=== PATIENT | male | born 1945 | race Caucasian/White ===

== ENCOUNTER 2020-10-01 07:16 | Outpatient (CLI) | payer MEDICARE, SELFPAY | END 2020-10-01 07:17 | disposition home or self-care (01) | PROVIDERS: PCP Internal Medicine; Visit Provider Nurse Practitioner Family | DX: R19.7 Diarrhea, unspecified (principal) | CPT/HCPCS: 87045; 87046; 87177; 87209; 87427 ==

== ENCOUNTER → 2020-10-17 01:12 | Outpatient (CLI) | payer MEDICARE, SELFPAY ==
[2020-10-17 19:13] LABS: SARS-CoV-2 RNA PCR Negative
== END ==
PROVIDERS: PCP Internal Medicine; Visit Provider Internal Medicine Gastroenterology
DX: Z01.812 Encounter for preprocedural laboratory examination (principal); Z20.822 Contact with and (suspected) exposure to COVID-19
CPT/HCPCS: C9803; U0003; U0005

== ENCOUNTER 2020-10-21 02:58 | Day surgery (SDC) | payer MEDICARE, SELFPAY ==
[2020-10-07 14:30] VITALS: BMI 22.4
[2020-10-21 06:47] VITALS: BP 140/80; PULSE 70; RESP 15; TEMP 36.1; O2SAT 96; BMI 22.4
[2020-10-21] MEDS: LACTATED RINGERS 1,000 ML 150 ML IV CONT (07:02)
--- NOTE | 2020-10-21 07:23 | PM.HPGS ---
History of Present Illness History of Present Illness Consent: Risks, benefits, and alternatives have been discussed and questions answered. Patient agrees to proceed with procedure. Chief complaint: diarrhea, hx of colon polyps Narrative: Femi Thomson is a 75 year old male here for colon cancer screening. He had several polyps removed about 5 years ago and has a family history of colon cancer Review of Systems Review of Systems: All systems reviewed & are unremarkable except as noted in HPI and below PMFSH Past Medical History Medical History HLD (hyperlipidemia) HTN (hypertension) Social History Social History Smoking packs per day: 1 Smoking cigarettes per day: 20.0 Years smoked: 45 Smoking pack-years: 45.00 Smoking status: Former smoker Tobacco type: cigarettes Alcohol intake: never Substance use: never Substance use type: does not use Living arrangements: with family Spiritual care concerns: No Meds Home Medications and Allergies Home Medications Medication Instructions Recorded Confirmed Type Bifidobacterium infantis 4 mg 4 mg PO DAILY 09/22/20 10/21/20 History capsule finasteride 5 mg tablet 5 mg PO DAILY 09/22/20 10/21/20 History nystatin 100,000 unit/gram topical 1 applic TOPICAL DAILY 09/22/20 10/21/20 History cream famotidine 20 mg tablet 20 mg PO QHS #30 tablet 09/30/20 10/21/20 Rx Allergies Allergy/AdvReac Type Severity Reaction Status Date / Time ciprofloxacin Allergy Mild Unknown Verified 10/21/20 06:46 doxycycline Allergy Mild Unknown Verified 10/21/20 06:46 metronidazole Allergy Mild Unknown Verified 10/21/20 06:46 prednisone Allergy Mild Unknown Verified 10/21/20 06:46 Vital Signs Vital Signs - 24 hr 10/21/20 06:47 Temperature 36.1 C L Pulse Rate 70 Respiratory Rate 15 Blood Pressure 140/80 Pulse Oximetry 96 Exam Resp: Auscultation: clear to auscultation bilaterally Cardio: Rate: regular rate Rhythm: regular rhythm GI: GI Palp: Yes Soft to palpation and No Tenderness to palpation present (GI) Assessment and Plan Assessment and plan (1) Colon cancer screening: Code(s): Z12.11 - Encounter for screening for malignant neoplasm of colon Status: Acute Assessment and Plan: Colonoscopy with possible biopsy or polypectomy or cautery or injection of substances.
--- NOTE | 2020-10-21 07:34 | WPDANESEPPF ---
Anes - Initial Pre Proc Eval Procedure: Operation Date: 10/21/20 08:00 Proposed Procedures p Colonoscopy - Jordon Licea MD Date/Time: 10/21/20 07:34 Surgeon: Jordon Licea MD Pre Op Diagnosis: diarrhea, hx of colon polyps Patient Data Age: 75 Gender: M Height: 6 ft Weight: 75 kg Last Vital Signs Temp 97 F L 10/21/20 06:47 Pulse 70 10/21/20 06:47 Resp 15 10/21/20 06:47 BP 140/80 10/21/20 06:47 Pulse Ox 96 10/21/20 06:47 Allergies Allergy/AdvReac Type Severity Reaction Status Date / Time ciprofloxacin Allergy Mild Unknown Verified 10/21/20 06:46 doxycycline Allergy Mild Unknown Verified 10/21/20 06:46 metronidazole Allergy Mild Unknown Verified 10/21/20 06:46 prednisone Allergy Mild Unknown Verified 10/21/20 06:46 Home Medications Medication Instructions Recorded Confirmed Type Bifidobacterium infantis 4 mg 4 mg PO DAILY 09/22/20 10/21/20 History capsule finasteride 5 mg tablet 5 mg PO DAILY 09/22/20 10/21/20 History nystatin 100,000 unit/gram topical 1 applic TOPICAL DAILY 09/22/20 10/21/20 History cream famotidine 20 mg tablet 20 mg PO QHS #30 tablet 09/30/20 10/21/20 Rx Patient hx anesthesia problems: none Family hx anesthesia problems: none PMFSH Past Medical History Medical History HLD (hyperlipidemia) HTN (hypertension) Social History Social History Smoking packs per day: 1 Smoking cigarettes per day: 20.0 Years smoked: 45 Smoking pack-years: 45.00 Smoking status: Former smoker Tobacco type: cigarettes Alcohol intake: never Substance use: never Substance use type: does not use Living arrangements: with family Spiritual care concerns: No Anes - Eval Final PreProcedure Day of Procedure 10/21/20 07:34 Patient weight: normal Heart: regular rate and rhythm Lungs: clear to auscultation Airway: Mallampati scale class III Neurological: alert and oriented Last oral intake: >/= 8 hours ASA classification: III Emergent: no Anesthetic plan: proceed Anesthesia type and monitoring: general GIVS and standard monitoring Informed Consent: The patient's anesthetic plan and its attendant risks and benefits were discussed with the patient/family/POA. Questions were solicited and answers provided to the satisfaction of the patient/family/POA.
[2020-10-21 08:23] VITALS: BP 96/58; PULSE 59; RESP 21; O2SAT 99
[2020-10-21 08:33] VITALS: BP 96/57; PULSE 61; RESP 19; O2SAT 100
[2020-10-21 08:42] VITALS: BP 128/81; PULSE 65; RESP 21; O2SAT 98
[2020-10-21 08:52] VITALS: BP 122/84; PULSE 63; RESP 22; O2SAT 98
== END 2020-10-21 09:04 | disposition home or self-care (01) ==
PROVIDERS: PCP Internal Medicine; Visit Provider Internal Medicine Gastroenterology
PROC: 0DJD8ZZ Inspection of Lower Intestinal Tract, Via Natural or Artificial Opening Endoscopic (ICD-10-PCS; CPT 45378; principal; 2020-10-21 08:00)
DX: Z12.11 Encounter for screening for malignant neoplasm of colon (principal); R19.7 Diarrhea, unspecified; Z86.010 Personal history of colon polyps; Z80.0 Family history of malignant neoplasm of digestive organs; I10 Essential (primary) hypertension; E78.5 Hyperlipidemia, unspecified; Z87.891 Personal history of nicotine dependence
CPT/HCPCS: G0105; J2704; J7120

== ENCOUNTER 2021-04-07 14:59 | Outpatient (CLI) | payer MEDICARE, SELFPAY ==
--- NOTE | ~2021-04-07 | XR_ITS ---
XR abdomen/kub 1V 04/07/2021 15:55 INDICATION: Hematuria. TECHNIQUE: KUB COMPARISON: Comparison to multiple prior studies sequentially, with oldest reviewed study dated 02/23. FINDINGS: Bowel gas pattern is normal. Status post cholecystectomy. Moderate colonic fecal loading. T here is no evidence of free air, mass, organomegaly, ascites or obstruction. No abnormal calculi are seen. The bones appear intact. IMPRESSION: 1: No acute abdominal abnormality identified. Reviewed, dictated and finalized at location A.
--- NOTE | ~2021-04-07 | CT_ITS ---
EXAMINATION: CT abdomen pelvis wo/w con DATE: 04/07/2021 16:07 CDT INDICATION: Hematuria. Blood in urine. TECHNIQUE: Computed tomographic angiography (CTA) of the abdomen and pelvis was performed without and with 130 mL Omnipaque-350 intravenous contrast. The dose-length product was 921.04 mGy-cm. Maximum i ntensity projection 3D-reconstructions of the aorta and other arteries were constructed by the techno logist on a separate workstation. Automated exposure control and iterative reconstruction technique w ere employed. COMPARISON: CT dated 09/20/2015. FINDINGS: There is emphysema. There is dependent atelectasis in the lung bases. Heart size is normal. No significant pleural or pericardial effusion. There is mild atherosclerosis without aneurysm. No l ymphadenopathy. No renal/ureteral stones. Mildly enlarged prostate gland. Status post cholecystectomy . There is abnormal thickening of the gastric wall and duodenum, suspicious for gastroenteritis. The li patsy, spleen, pancreas, adrenal glands and right kidney are unremarkable. There is a 1.7 cm left renal cyst. Ureters are normal in course and caliber. Bladder wall is mildly prominent, although not well distended. Nonobstructive bowel gas pattern. No free air or free fluid. Normal appendix. Moderate low er thoracic and lumbar spondylosis. No acute osseous abnormality. IMPRESSION: 1. Abnormal thickening of the stomach and duodenum, suspicious for gastroenteritis. Consider inflamma tory bowel disease and infection most likely. 2: Mildly prominent prostate gland. Mildly prominent bladder wall, although this may be related to un derdistention, bladder outlet obstruction or mild cystitis. 3: Reviewed, dictated and finalized at location A. IMPRESSION: 1. Abnormal thickening of the stomach and duodenum, suspicious for gastroenteri tis. Consider inflammatory bowel disease and infection most likely. 2: Mildly prominent prostate gland. Mildly prominent bladder wall, although thi s may be related to underdistention, bladder outlet obstruction or mild cystiti s. 3:
[2021-04-07 15:39] LABS: Estimated Glomerular Filt Rate > 60
== END 2021-04-07 15:00 | disposition home or self-care (01) ==
LOC: ANHIMG 15:05
PROVIDERS: PCP Internal Medicine; Visit Provider Nurse Practitioner Adult Health
DX: R31.0 Gross hematuria (principal); R93.3 Abnormal findings on diagnostic imaging of other parts of digestive tract
CPT/HCPCS: 74018; 74178; Q9967

== ENCOUNTER 2021-11-25 02:08 | Day surgery (SDC) | payer MEDICARE, SELFPAY ==
[2021-11-16 12:55] VITALS: BMI 22.4
--- NOTE | 2021-11-16 13:17 | PC.NURSE ---
Report to the Outpatient Waiting Room, entrance under the green pavilion located off [facility], at time __10:00AM on date _11/25/21 . OR Time: __12:00PM . - You and your visitor will be asked a series of questions to screen for COVID 19 for your protection. - A mask is required within the hospital. Preoperative COVID Testing Requirements: No COVID Test needed if: (proof is required; if not received patient will have Rapid Test prior to entry) - Patient has received COVID Vaccine at least 14 days prior to procedure date or - Patient has positive COVID test result within last 90 days of surgery date. COVID Test needed if above criteria is not met If not COVID vaccinated a COVID test must be conducted within 72 hours of surgery and patient is asked to isolate self from time of testing until procedure. You will go to the [facility] for your COVID testing. The [email or web address] is located at the corner of [address] [facility]. You will only be called if COVID results are positive and your surgeon may reschedule your elective surgery date. Patients may have clear liquids (water, carbonated beverages, clear teas, apple juice) until 3 hours prior to surgery with a maximum of 20 ounces. - No food from midnight until time of surgery - Infants may have breast milk until 4 hours before surgery, infant formula 6 hours prior to surgery. - Children will be allowed to drink immediately following surgery. If applicable, please bring a bottle or sippy cup to assist with drinking. Juice, water, soda, and popsicles are readily available. For infants on formula, please bring formula the day of surgery. Pacifiers are allowed. Take the following medications with a SIP of water the morning of surgery: ___NONE Medications to discontinue per physician ___ALL VITAMINS/SUPPLEMENTS 7 DAYS PRE-OP PER DR OHARA Date to take last dose 11/18/21 Please no make-up, nail singaporean, hairspray, perfume, deodorant, or body powder the day of surgery. No jewelry (including any body piercings) or valuables the day of surgery, leave them at home. Please take a shower or bath the night before, or the morning of, surgery with an antibacterial soap. Wear comfortable, loose fitting clothing. Children are encouraged to wear pajamas. - Jewelry must be removed prior to entering the operating room. Rings and piercings that are not removed may be cut off. - The hospital will not accept responsibility for valuables. - Please leave all valuables, including medications, at home the day of surgery. If you are going home after surgery, a licensed driver helper must drive you home. - NO public transportation without another adult. - We recommend that an adult stay with you for 24 hours following discharge. - We also recommend that you do not drive, make important decision, drink alcoholic beverages, or take any drugs that were not prescribed by your health care provider for at least 24 hours after your discharge time. For Pediatric surgeries, we recommend two adults accompany the child home (only one inside the building at this time). One visitor will be allowed to accompany the patient into the hospital. Patients visitor will be instructed to remain with patient at all times or leave the building. We will allow the visitor to come back to the postoperative area when patient is ready. Follow any additional instructions given to you from your surgeon. Telephone instructions given to _PATIENT and asked if any additional questions and then verbalized understanding. Patient advised to call surgeon office or pre surgery nurse liaison [phone] if any additional questions.
--- NOTE | 2021-11-24 11:33 | P.PNAN_ITS ---
Anes - Initial Pre Proc Eval Procedure: Operation Date: 11/25/21 11:15 Proposed Procedures p Trans Urethral Resection Bladder Tumor with Gemcitabine Instillation - Tu Romo MD Date/Time: 11/24/21 11:33 Surgeon: Tu Romo MD Pre Op Diagnosis: Gross Hematuria, Bladder Ca Patient Data Age: 76 Gender: M Height: 1.83 m Weight: 75 kg Allergies Allergy/AdvReac Type Severity Reaction Status Date / Time ciprofloxacin AdvReac Mild Joint Pain Verified 11/25/21 09:50 doxycycline AdvReac Mild acid reflux Verified 11/25/21 09:50 Home Medications Medication Instructions Recorded Confirmed Type Bifidobacterium infantis 4 mg 4 mg PO DAILY 09/22/20 11/25/21 History capsule finasteride 5 mg tablet 5 mg PO DAILY 09/22/20 11/25/21 History ascorbic acid (vitamin C) 500 mg PO DAILY 11/16/21 11/25/21 History atorvastatin 10 mg PO QPM 11/16/21 11/25/21 History cholecalciferol (vitamin D3) 50 mcg PO DAILY 11/16/21 11/25/21 History famotidine 20 mg PO QACDINNER 11/16/21 11/25/21 History Patient hx anesthesia problems: none Family hx anesthesia problems: none Results Review: All pre-operative results and documents have been reviewed as part of the pre-operative evaluation. [facility] Past Medical History Medical History (Updated 11/24/21 @ 11:33 by Jonathan Mcfadden DO) GERD (gastroesophageal reflux disease) HLD (hyperlipidemia) HTN (hypertension) Social History Social History Smoking packs per day: 1.5 Smoking cigarettes per day: 30.0 Years smoked: 40 Smoking pack-years: 60.00 Smoking status: Former smoker Tobacco type: cigarettes Smoking end date: 02/01/04 Alcohol intake: never Alcohol use details: SOCIAL DRINKER IN THE PAST Substance use: never Substance use type: does not use Living arrangements: with family Additional living arrangements comments: Spiritual care concerns: No Anes - Eval Final PreProcedure Day of Procedure 11/24/21 11:33 Patient weight: normal Heart: regular rate and rhythm Lungs: clear to auscultation and normal air movement Airway: Mallampati scale class II Neurological: alert and oriented Last oral intake: >/= 8 hours ASA classification: III Emergent: no Anesthetic plan: proceed Anesthesia type and monitoring: general LMA and standard monitoring Results Review: All pre-operative results and documents have been reviewed as part of the pre-operative evaluation. Informed Consent: The patient's anesthetic plan and its attendant risks and benefits were discussed with the patient/family/POA. Questions were solicited and answers provided to the satisfaction of the patient/family/POA.
[2021-11-25] VITALS (9 sets, daily range): BP systolic 129–143; BP diastolic 66–86; PULSE 59–69; RESP 10–20; TEMP 36.2–36.6; O2SAT 94–100
--- NOTE | 2021-11-25 06:41 | WPDHPUPDATE1 ---
History and Physical Update Update Date/Time: 11/25/21 06:41 History and Physical has been reviewed, including an updated exam of the patient. There are NO changes in the patient's condition. Risks, benefits, and alternatives have been discussed and questions answered. Patient agrees to proceed with procedure.
[2021-11-25] MEDS: LACTATED RINGERS 1,000 ML 30 ML IV CONT ×2 (10:00→13:15)
[2021-11-25] MEDS: ceFAZolin 2 GM/D5W 50 ML 2 GM/50 ML BAG IVPB (11:24)
[2021-11-25] MEDS: LIDOCAINE HCL 2% GEL UROJET 10 ML PKG MUCOUS MEM (11:37)
--- NOTE | 2021-11-25 11:57 | P.OP_ITS ---
Procedure Note - Detailed Date of Procedure 11/25/21 Pre-op Diagnosis Gross Hematuria, Bladder Ca Post-op Diagnosis Same Procedure Performed TURBT (large, 4-5cm) Surgeon Tu Romo MD Anesthesia General Description of Procedure The patient was brought to the operative suite where he is prepped and draped in a routine sterile fashion while in the dorsal lithotomy position. This is done after the uneventful administration of systemic sedation. 2% Xylocaine jelly is introduced intraurethrally and allowed to stand for an appropriate period of time. A 24F resectoscope sheath was placed in the bladder and the bladder is circumferentially inspected carefully. He has a single somewhat sessile neopl asm right anterior lateral bladder wall (3cm above/lateral to the right ureteral orifice. This area is resected in its entirety with an attempt made to include detrusor muscle for pathological evaluation of invasion. The base and periphery of this resected side is cauterized with a loop electrode. The bladder is emptied and the resectoscope was removed. The patient is taken to the recovery room having tolerated this procedure well. Estimated Blood Loss 0 Drains Yes Packing No Pathology None sent Complications No immediate complications Condition Stable Disposition PACU
--- NOTE | 2021-11-25 11:59 | W.PM.PROC2 ---
Procedure Note - Detailed Date of Procedure 11/25/21 Pre-op Diagnosis Gross Hematuria, Bladder Ca Post-op Diagnosis Same Procedure Performed Gemcitabine bladder instillation Surgeon Tu Romo MD Anesthesia General and None Description of Procedure With the patient in the supine position, a 16F Flores catheter is placed using sterile technique. Using a protective facemask, gown and double layer of gloves Gemcitabine 2gm in 100cc saline is administered through the catheter/into the bladder. The catheter is then plugged. Patient was instructed to lie supine x20min, then to roll both the left and right x20 min. each. Total dwell time will be 60 min., after which the bladder will be drained and catheter removed. Estimated Blood Loss 0 Drains Yes Packing No Pathology None sent Complications No immediate complications Condition Stable Disposition PACU
[2021-11-25] MEDS: SODIUM CHLORIDE 0.9% IV 23.7 ML, GEMCITABINE HCL 1,000 MG BLADDER ×2 (12:04→12:05)
[2021-11-25] MEDS: fentaNYL CITRATE INJ (*CRX) 100 MCG/2 ML VIAL 25 MCG IV PUSH ×5 (12:11→12:53)
== END 2021-11-25 14:15 | disposition home or self-care (01) ==
PROVIDERS: PCP Internal Medicine; Visit Provider Urology
PROC: 0TBB8ZZ Excision of Bladder, Via Natural or Artificial Opening Endoscopic (ICD-10-PCS; CPT 51720; principal; 2021-11-25 11:15)
DX: C67.8 Malignant neoplasm of overlapping sites of bladder (principal); R31.0 Gross hematuria; I10 Essential (primary) hypertension; E78.5 Hyperlipidemia, unspecified; K21.9 Gastro-esophageal reflux disease without esophagitis; Z87.891 Personal history of nicotine dependence
CPT/HCPCS: 51720; 52235; 88305; 88307; A9270; J0690; J1100; J2405; J2704; J3010; J7120; J9201

== ENCOUNTER 2022-10-14 01:45 | Day surgery (SDC) | payer MEDICARE, SELFPAY ==
[2022-10-05 12:33] VITALS: BMI 23.1
--- NOTE | 2022-10-14 10:10 | PM.HPGS ---
History of Present Illness History of Present Illness Consent: Risks, benefits, and alternatives have been discussed and questions answered. Patient agrees to proceed with procedure. Chief complaint: Epigastric pain Narrative: Femi Thomson is a 77 year old male Who has been complaining of discomfort in the right upper quadrant that began about 6 weeks ago.? At times he also feels in the right lower quadrant.? ? He states that this is something new, and also now he has burning in the epigastric area after meals.? This will last for about 2 hours.? he occasionally has nausea but no vomiting and no weight loss. Review of Systems Review of Systems: All systems reviewed & are unremarkable except as noted in HPI and below PMFSH Past Medical History Medical History COPD (chronic obstructive pulmonary disease) GERD (gastroesophageal reflux disease) HLD (hyperlipidemia) HTN (hypertension) Social History Social History Smoking packs per day: 1.5 Smoking cigarettes per day: 30.0 Years smoked: 45 Smoking pack-years: 67.50 Smoking status: Former smoker Tobacco type: cigarettes Smoking end date: 02/01/04 Alcohol intake: former Alcohol use details: SOCIAL DRINKER IN THE PAST Substance use: never Substance use type: does not use Living arrangements: alone Additional living arrangements comments: Gender identity (if verbalized by the patient): Male Sexual Orientation (if Verbalized by the Patient): Straight or Heterosexual Spiritual care concerns: No Meds Home Medications and Allergies Home Medications Medication Instructions Recorded Confirmed Type Bifidobacterium infantis 4 mg 4 mg PO DAILY 09/22/20 10/05/22 History capsule (Align) finasteride 5 mg tablet 5 mg PO DAILY 09/22/20 10/05/22 History atorvastatin 10 mg tablet 10 mg PO QPM 11/16/21 10/05/22 History famotidine 20 mg tablet 20 mg PO QACDINNER reflux 11/16/21 10/05/22 History aspirin 81 mg tablet 81 mg PO DAILY 10/05/22 10/05/22 History Allergies Allergy/AdvReac Type Severity Reaction Status Date / Time ciprofloxacin AdvReac Mild Joint Pain Verified 10/14/22 10:09 doxycycline AdvReac Mild acid reflux Verified 10/14/22 10:09 Exam Const: General: alert Orientation/consciousness: patient oriented x3 Resp: Auscultation: clear to auscultation bilaterally Cardio: Rhythm: regular rhythm GI: GI Palp: Yes Soft to palpation and No Tenderness to palpation present (GI) Neuro: General: patient oriented x3 Assessment and Plan Assessment and plan (1) Epigastric pain: Code(s): R10.13 - Epigastric pain Status: Acute Assessment and Plan: EGD with possible biopsy or dilatation or cautery.
[2022-10-14 10:11] VITALS: BP 126/78; PULSE 64; RESP 18; TEMP 36.3; O2SAT 99
--- NOTE | 2022-10-14 10:21 | WPDANESEPPF ---
Anes - Initial Pre Proc Eval Procedure: Operation Date: 10/14/22 11:00 Proposed Procedures p Esophagogastroduodenoscopy - Jordon Licea MD Date/Time: 10/14/22 10:21 Surgeon: Jordon Licea MD Pre Op Diagnosis: Epigastric pain Patient Data Age: 77 Gender: M Height: 1.83 m Weight: 74.4 kg Last Vital Signs Temp 36.3 C L 10/14/22 10:11 Pulse 64 10/14/22 10:11 Resp 18 10/14/22 10:11 BP 126/78 10/14/22 10:11 Pulse Ox 99 10/14/22 10:11 O2 Del Method Room Air 10/14/22 10:11 Allergies Allergy/AdvReac Type Severity Reaction Status Date / Time ciprofloxacin AdvReac Mild Joint Pain Verified 10/14/22 10:09 doxycycline AdvReac Mild acid reflux Verified 10/14/22 10:09 Home Medications Medication Instructions Recorded Confirmed Type Bifidobacterium infantis 4 mg 4 mg PO DAILY 09/22/20 10/05/22 History capsule (Align) finasteride 5 mg tablet 5 mg PO DAILY 09/22/20 10/05/22 History atorvastatin 10 mg tablet 10 mg PO QPM 11/16/21 10/05/22 History famotidine 20 mg tablet 20 mg PO QACDINNER reflux 11/16/21 10/05/22 History aspirin 81 mg tablet 81 mg PO DAILY 10/05/22 10/05/22 History Patient hx anesthesia problems: none Family hx anesthesia problems: none Results Review: All pre-operative results and documents have been reviewed as part of the pre-operative evaluation. [facility] Past Medical History Medical History (Updated 10/14/22 @ 10:22 by Felix Wick MD) COPD (chronic obstructive pulmonary disease) GERD (gastroesophageal reflux disease) HLD (hyperlipidemia) HTN (hypertension) Social History Social History Smoking packs per day: 1.5 Smoking cigarettes per day: 30.0 Years smoked: 45 Smoking pack-years: 67.50 Smoking status: Former smoker Tobacco type: cigarettes Smoking end date: 02/01/04 Alcohol intake: former Alcohol use details: SOCIAL DRINKER IN THE PAST Substance use: never Substance use type: does not use Living arrangements: alone Additional living arrangements comments: Gender identity (if verbalized by the patient): Male Sexual Orientation (if Verbalized by the Patient): Straight or Heterosexual Spiritual care concerns: No Anes - Eval Final PreProcedure Day of Procedure 10/14/22 10:21 Patient weight: normal Heart: regular rate and rhythm Lungs: decreased breath sounds Airway: Mallampati scale class II Neurological: alert and oriented Last oral intake: >/= 8 hours ASA classification: III Emergent: no Anesthetic plan: proceed Anesthesia type and monitoring: general GIVS and standard monitoring Results Review: All pre-operative results and documents have been reviewed as part of the pre-operative evaluation. Informed Consent: The patient's anesthetic plan and its attendant risks and benefits were discussed with the patient/family/POA. Questions were solicited and answers provided to the satisfaction of the patient/family/POA.
[2022-10-14] MEDS: LACTATED RINGERS 1,000 ML 150 ML IV CONT (10:25)
[2022-10-14 11:21] VITALS: BP 127/70; PULSE 61; RESP 21; O2SAT 98
[2022-10-14 11:31] VITALS: BP 110/67; PULSE 59; RESP 17; O2SAT 98
[2022-10-14 11:41] VITALS: BP 131/85; PULSE 62; RESP 24; O2SAT 98
--- NOTE | 2022-10-14 12:16 | SUR.PHASEII ---
Pt stated has stopped taking Prevacid in preparation for procedure. Dr. Licea called. Ok to resume Prevacid. Medication added to home medication list.
== END 2022-10-14 12:05 | disposition home or self-care (01) ==
PROVIDERS: PCP Internal Medicine; Visit Provider Internal Medicine Gastroenterology
PROC: 0DJ08ZZ Inspection of Upper Intestinal Tract, Via Natural or Artificial Opening Endoscopic (ICD-10-PCS; CPT 43235; principal; 2022-10-14 11:00)
DX: K22.70 Barrett's esophagus without dysplasia (principal); K21.9 Gastro-esophageal reflux disease without esophagitis; K44.9 Diaphragmatic hernia without obstruction or gangrene; K29.70 Gastritis, unspecified, without bleeding; I10 Essential (primary) hypertension; E78.5 Hyperlipidemia, unspecified; J44.9 Chronic obstructive pulmonary disease, unspecified; Z79.82 Long term (current) use of aspirin; Z87.891 Personal history of nicotine dependence
CPT/HCPCS: 43239; 87081; 88305; J2704; J7120

== ENCOUNTER 2023-01-16 12:06 | Emergency (ER) | payer MEDICARE, SELFPAY ==
--- NOTE | ~2023-01-16 | CT_ITS ---
EXAMINATION: CT abdomen pelvis w con DATE: 01/16/2023 13:48 INDICATION: Abdomen pain. TECHNIQUE: Computed tomography (CT) of the abdomen and pelvis was performed without intravenous contr ast. The dose-length product was 377.13 mGy-cm. Automated exposure control and iterative reconstructi on technique were employed. COMPARISON: CT dated 04/07/2021. FINDINGS: There is emphysema. Heart size normal. No significant pleural or pericardial effusion. Fatty infiltration of the liver. The spleen, pancreas, adrenal glands and right kidney are unremarkab le. There is focal bladder wall thickening along the right lateral margin with associated coarse calc ifications. There is a left renal cyst. Nonobstructive bowel pattern. Mild osteoarthritis of the hips . Moderate lower thoracic and lumbar spondylosis. Persistent abnormal thickening of the gastric wall. No suspicious lytic or blastic lesions of the bones. IMPRESSION: 1. Persistent abnormal thickening of the gastric wall. Consider gastritis, pyloric ulcer disease and lymphoma. Recommend GI consultation. 2: Abnormal thickening right lateral margin of the bladder wall with associated coarse calcifications . Transitional cell carcinoma cannot be excluded. Recommend urology consultation Reviewed, dictated and finalized at location [] IMPRESSION: 1. Persistent abnormal thickening of the gastric wall. Consider gastritis, pylo nini ulcer disease and lymphoma. Recommend GI consultation. 2: Abnormal thickening right lateral margin of the bladder wall with associated coarse calcifications. Transitional cell carcinoma cannot be excluded. Recomme nd urology consultation
[2023-01-16 12:09] VITALS: BP 144/82; PULSE 75; RESP 18; TEMP 36.8; O2SAT 98
--- NOTE | 2023-01-16 12:41 | ED.GENADULT ---
HPI - General Adult General Chief complaint: Abdominal Pain Stated complaint: abd pain Time Seen by Provider: 01/16/23 12:16 History of Present Illness HPI narrative: 77-year-old male presented the ED for evaluation of intermittent abdominal pain that has been ongoing for the last 7 to 10 days. Patient states he is also had some issues with alternating soft and hard stool. Patient does have a prior history of bladder cancer that had previously been treated with radiation and chemotherapy. Patient currently does have follow-up scheduled with Dr. Matos but has not getting any current treatments. Patient denies any associated nausea or vomiting. Patient denies any pain with urination. Patient does have a prior history of cholecystectomy, patient does still have his appendix Related Data Home Medications Medication Instructions Recorded Confirmed Bifidobacterium infantis 4 mg 4 mg PO DAILY 09/22/20 10/14/22 capsule (Align) finasteride 5 mg tablet 5 mg PO DAILY 09/22/20 10/14/22 atorvastatin 10 mg tablet 10 mg PO QPM 11/16/21 10/14/22 famotidine 20 mg tablet 20 mg PO QACDINNER reflux 11/16/21 10/14/22 aspirin 81 mg tablet 81 mg PO DAILY 10/05/22 10/14/22 Allergies Allergy/AdvReac Type Severity Reaction Status Date / Time ciprofloxacin AdvReac Mild Joint Pain Verified 01/16/23 12:07 doxycycline AdvReac Mild acid reflux Verified 01/16/23 12:07 Review of Systems Review of Systems: All systems reviewed & are unremarkable except as noted in HPI and below PMFSH Past Medical History Medical History COPD (chronic obstructive pulmonary disease) GERD (gastroesophageal reflux disease) HLD (hyperlipidemia) HTN (hypertension) Social History Social History Smoking packs per day: 1.5 Smoking cigarettes per day: 30.0 Years smoked: 45 Smoking pack-years: 67.50 Smoking status: Former smoker Tobacco type: cigarettes Smoking end date: 02/01/04 Alcohol intake: former Alcohol use details: SOCIAL DRINKER IN THE PAST Substance use: never Substance use type: does not use Living arrangements: alone Additional living arrangements comments: Gender identity (if verbalized by the patient): Male Sexual Orientation (if Verbalized by the Patient): Straight or Heterosexual Spiritual care concerns: No Exam Narrative: APPEARANCE: Well appearing, no pain, no distress, well-nourished. HEAD: normocephalic, atraumatic. EYES: PERRLA/EOMI, conjunctivae clear. NOSE: Normal no drainage NECK: Supple. No adenopathy, no masses. RESPIRATORY: Airway patent, respirations nonlabored. Clear to auscultation bilaterally, no rales, rhonchi, wheezing. CARDIOVASCULAR: Regular rate and rhythm without murmurs rubs or gallops. ABDOMINAL: Soft, nondistended, normal bowel sounds, right lower quadrant tenderness to palpation MUSCULOSKELETAL: Moves all extremities. Strength/ROM intact, No edema, No calf tenderness. NEURO: Alert. Cranial nerves II through XII intact. Grossly intact SKIN: Warm, dry. Normal Color Course Course Emergency Course: 77-year-old male presented emergency department for evaluation of intermittent abdominal pain and change in stools. Patient is afebrile with no leukocytosis. Patient's hemoglobin is stable. Patient had no significant abnormalities on his CMP and UA showed no evidence of infection. CT scan was ordered due to his abdominal pain. CT scan did show evidence of changes in the stomach and in the urinary bladder. Patient does have prior history of gastritis and does have prior history of bladder cancer. Patient does have follow-up pending with urology. Patient was updated the results of his CT and was encouraged to follow-up with GI regarding the CT findings. All questions concerns were addressed and patient was well-appearing and comfortable with the plan for discharge and close follow-
[2023-01-16 12:45] LABS: Basophils Absolute Auto 0.1 K/mm3 (0.0-0.1); Eosinophils Absolute Auto 0.1 K/mm3 (0-0.3); Eosinophils Percent Auto 1.2 % (0-4.4); Hematocrit 39.3 % (42.0-52.0); Hemoglobin 13.3 g/dL (14.0-18.0); Immature Granulocyte Absolute 0.01 K/mm3 (0.00-0.031); Immature Granulocyte Percent A 0.2 % (0-0.5); Lymphocytes Absolute Auto 0.85 K/mm3 (0.9-3.2); Lymphocytes Percent Auto 17.4 % (18.3-44.2); Mean Corpuscular HGB Conc 33.8 g/dl (32-36); Mean Corpuscular Hemoglobin 32.4 pg (26-34); Mean Corpuscular Volume 95.6 fl (80-100); Mean Platelet Volume 9.5 fl (7.4-10.4); Monocytes Absolute Auto 0.5 K/mm3 (0.1-0.6); Monocytes Percent Auto 9.6 % (2.6-8.5); Neutrophils Absolute Auto 3.4 K/mm3 (1.3-6.7); Neutrophils Percent Auto 70.6 % (45.5-73.1); Platelet Count Result 191 k/mm3 (150-375); Red Blood Count 4.11 M/mm3 (4.6-6.20); Red Cell Distribution Width 13.2 % (11.5-14.5); White Blood Count 4.9 K/mm3 (4.5-10.0)
[2023-01-16 12:47] LABS: Appearance Urine Clear (Clear); Bilirubin Urine Negative (Negative); Blood Urine Negative (Negative); Color Urine Yellow (Yellow); Glucose Urine UA Negative (Negative); Ketones Urine Negative (Negative); Leukocyte Esterase Ur Negative LEU/UL (Negative); Nitrate Urine Negative (Negative); Protein Urine Negative (Negative); Urobilinogen Urine 0.2 mg/dL (<2.0)
[2023-01-16 12:54] LABS: Alanine Aminotransferase 26 U/L (6-50); Albumin Level 4.3 g/dL (3.5-5.1); Alkaline Phosphatase 63 U/L (38-126); Anion Gap 5 mmol/L (8-16); Aspartate Amino Transferase 35 U/L (17-59); Bilirubin,Total 0.5 mg/dL (0.2-1.3); Blood Urea Nitrogen 17 mg/dL (9-20); Calcium 8.8 mg/dL (8.4-10.2); Carbon Dioxide 31 mmol/L (22-30); Chloride 100 mmol/L (98-107); Estimated CRCL calculation 69 ml/min; Estimated Glomerular Filt Rate > 60; Glucose 102 mg/dL (65-110); Lipase 64 U/L (23-300); Potassium 4.3 mmol/L (3.4-5.0); Sodium 136 mmol/L (137-145)
[2023-01-16 12:56] LABS: Add Urine Microscopic? NO
[2023-01-16] MEDS: PANTOPRAZOLE SODIUM IV 40 MG VIAL IV PUSH (14:34)
--- NOTE | 2023-01-16 15:14 | PC.NURSE ---
Patient states he would like to speak with the doctor about his bowels prior to leaving department. Dr West made aware and states he will speak with patient when he is able to
[2023-01-16 15:25] VITALS: BP 138/80; PULSE 80; RESP 18; O2SAT 99
== END 2023-01-16 15:29 | disposition home or self-care (01) ==
PROVIDERS: Emergency Medicine; Emergency Provider Emergency Medicine; PCP Internal Medicine
DX: R10.9 Unspecified abdominal pain (principal); J44.9 Chronic obstructive pulmonary disease, unspecified; K21.9 Gastro-esophageal reflux disease without esophagitis; E78.5 Hyperlipidemia, unspecified; I10 Essential (primary) hypertension; Z92.21 Personal history of antineoplastic chemotherapy; Z85.51 Personal history of malignant neoplasm of bladder; Z92.3 Personal history of irradiation; Z87.891 Personal history of nicotine dependence; Z79.82 Long term (current) use of aspirin; R93.5 Abnormal findings on diagnostic imaging of other abdominal regions, including retroperitoneum; R93.41 Abnormal radiologic findings on diagnostic imaging of renal pelvis, ureter, or bladder
CPT/HCPCS: 36415; 74177; 80053; 81003; 83690; 85025; 96374; 99284; C9113; Q9967

== ENCOUNTER 2023-03-20 14:05 | Outpatient (NON) | payer MEDICARE, SELFPAY | END 2023-03-20 14:06 | disposition home or self-care (01) | LOC: ANHLAB 14:05 | PROVIDERS: PCP Internal Medicine; Visit Provider Nurse Practitioner | DX: C44.622 Squamous cell carcinoma of skin of right upper limb, including shoulder (principal) | CPT/HCPCS: 88305; 88331; 88332 ==

== ENCOUNTER 2024-09-24 00:20 | Day surgery (SDC) | payer MEDICARE, SELFPAY ==
[2024-09-11 11:05] VITALS: BMI 22.4
--- OUTSIDE RECORDS SUMMARY | 2024-09-24 00:24 | XMS_ITS ---
Author Organization [facility] Address [address] [place] [address] Phone Care Team Providers Care Adult Basic Education Teacher Name Role Phone Joel Oquendo MD Unavailable [phone] Lam Hunt MD Primary Care Provider [phone] Codie Devine MD Unavailable [phone] Arianna Mejia RN Unavailable Unavailable Active Problems Problem Noted Date Diagnosed Date Spinal stenosis 05/31/2022 Irritable bowel syndrome 12/29/2021 Malignant neoplasm of overlapping sites of bladd er 12/10/2021 Coronary arteriosclerosis 11/23/2021 Hyperlipidemia 08/06/2020 Essential hypertension 08/06/2020 Gastroesophageal reflux disease without esophagi tis 08/25/2018 Chronic pain 11/29/2010 Current Treatment and Therapy Plans bladder CA WEEKLY CISPLATIN / XRT - [facility]* Plan Start Date:12/15/2021 Plan Provider:Joel Oquendo MD Linked Problems Malignant neoplasm of overla pping sites of bladder (HCC) Treatment Medications CISplatin (PLATINOL) chemo infusion using 100 mg SUPPORT - B12 q 3 months - [facility]* Plan Start Date:03/02/2022 Plan Provider:Joel Oquendo MD Linked Problems Malignant neoplasm of overla pping sites of bladder (HCC) Treatment Medications No medications scheduled. Past Treatment and Therapy Plans No past plan information found. Lifetime Dose Tracking * Chemical Lifetime Dose Automatic Entry Manual Entr y Cisplatin 211.443 mg/m2 (411.6 mg) 211.443 mg/m2 (4 11.6 mg) 0 mg/m2 (0 mg)
--- OUTSIDE RECORDS SUMMARY | 2024-09-24 00:24 | XMS_ITS | Continuity of Care Document ---
Author Organization [facility] Address [address] [place] [address] [place] [address] Phone Care Team Providers Care Industrial Analyst Name Role Phone Catrachito Santos Unavailable Unavailable Procedures Procedure Date Office/outpatient Visit, Est Eye Exam Established Pt Advance Directives Directive Yes / No Effective Date File Name No Information Encounters Encounter Description Practice Location Reason(s) For Visit Diagnoses Date Provider Providers Copied on Encounter Office/outpat ient Visit, Est [facility], [address] [place] [address] [address], [place], [place], [id number], tel:[phone] [facility] No Information 6-200 [address] Krishnasamy Catrachito. [address], [facility], [place]. tel:[phone] [facility], [address] [place] [address] [address], [place], [place], [id number], tel:[phone] [facility] No Information 5-200 [address] Catrachito. [address] [address], [place], [address], [place]. tel:[phone] Family History Family Member Type Diagnosis Age At Onset No Information Payers Payer name Insurance type Covered green party ID Authoriza tion(s) No Information Social History Type Description Quantity Date Captured Comments Sex Male Smoking Status No Information Chief Complaint And Reason For Visit No Information Reason For Referral Reason For Referral No Information History Of Present Illness Encounter Date Complaint History Of Prese nt Illness No Information Functional Status Date Functional Assessmen t No Information Instructions Date Instruction Additional Infor mation No Information Assessments Type Assessment Date No Information Patient Care Teams Name Effective Dates (start - stop) Status Members No Information
--- OUTSIDE RECORDS SUMMARY | 2024-09-24 00:24 | XMS_ITS | Clinical Summary ---
Author Organization [facility] Address [address] [place] [address] Phone Care Team Providers Care Identity Management Consultant Name Role Phone Joel Oquendo MD Unavailable [phone] Lam Hunt MD Primary Care Provider [phone] Codie Devine MD Unavailable [phone] Arianna Mejia RN Unavailable Unavailable Allergies Active Allergy Reactions Criticality Noted Date Comments Ciprofloxacin Other (see Comments),Hives 2021 Doxycycline Other (see Comments),Rash High 2 Metronidazole Nausea,Other (see Comments) Medium 12/09 Prednisone Anxiety,Diarrhea Low 12/09/2021 Medications atorvastatin (LIPITOR) 10 MG Tablet Take 10 mg by mouth daily. 2 Active finasteride (PROSCAR) 5 MG Tablet finasteride 5 mg tablet TAKE 1 TABLET BY MOUTH EVERY DAY Active Probiotic Product (ALIGN PO) Take by mouth. Activ e sucralfate (CARAFATE) 1 GM Tablet sucralfate 1 gram tablet Active pantoprazole (PROTONIX) 40 MG Tablet Delayed Response pantoprazole 40 mg tablet,delayed release Active famotidine (PEPCID) 20 MG Tablet famotidine 20 mg tablet Active tamsulosin (FLOMAX) 0.4 MG Capsule Take 0.4 mg by mouth. 2 Active magnesium oxide (MAG-OX) 400 MG Tablet Take 1 Tablet by mouth daily. 30 Tablet 2 Active psyllium (METAMUCIL) 58.6 % Powder Take 1 Packet by mouth daily. 283 g 2 Active Additional Information Patient not taking.Reported on 12/08/2022 HYDROcodone-jena taminophen (NORCO) 5-325 MG Tablet TAKE ONE TABLET BY MOUTH UP TO ONCE DAILY NEEDED FOR SEVERE PAIN (7 DAYS) 3 Active gabapentin (NEURONTIN) 100 MG Capsule gabapentin 100 mg capsule TAKE 1 CAPSULE BY MOUTH THREE TIMES A DAY FOR 30 DAYS Active Multiple Vitamins-Minera ls (ICAPS AREDS 2 PO) Take by mouth in the morning and at bedtime. Active aspirin EC 81 MG Tablet Delayed Response Take 81 mg by mouth daily. Active Active Problems Problem Noted Date Diagnosed Date Spinal stenosis 05/31/2022 Irritable bowel syndrome 12/29/2021 Malignant neoplasm of overlapping sites of bladd er 12/10/2021 Coronary arteriosclerosis 11/23/2021 Hyperlipidemia 08/06/2020 Essential hypertension 08/06/2020 Gastroesophageal reflux disease without esophagi tis 08/25/2018 Chronic pain 11/29/2010 Encounters Date Type Department Care Team Description 09/06/2024 10:30 AM ECONOMIC MANAGER Clinical Support [facility] [address] [id number] Nurse, Ginny Baez Malignant neoplasm of overlapping sites of bladder (HCC) (Primary Dx) 09/06/2024 Travel 07/05/2024 10:45 AM ECONOMIC MANAGER Lab [facility] [address] [id number] Lab, Ginny Baez Malignant neoplasm of overlapping sites of bladder (HCC) 07/05/2024 10:30 AM ECONOMIC MANAGER Office Visit [facility] [address] [id number] Joel Oquendo MD Malignant neoplasm of overlapping sites of bladder (HCC) (Primary Dx) 07/05/2024 Travel from Last 3 Months Immunizations Immunization Administration Dates Next Due Covid-19, Mrna, Lnp-s, Pf, 3 0 Mcg/0.3 Ml Dose (Baeta) 05/23/2021 Influenza Vaccine 05/22/2014 Influenza, High-dose, Quadrivalent 04/27/2022,,05/11/2020 Influenza, Injectable, Quadrivalent 05/14/2015 Influenza, Seasonal, Injecta ble, Undefined 05/15/2013 Influenza, high-dose, trivalent, PF 05/01,05/09/2018,05/11/2017,2015 Pneumococcal Vaccine - 13 Valent 08/11/2016 Pneumococcal Vaccine Adult - 23 Valent 02/07/2019 TDAP Vaccine 07/29/2013 Social History Tobacco Use Types Packs/Day Years Used Date Smoking Tobacco: Former Cigarettes Smokeless Tobacco: Never Tobacco Cessation:Counseling Given: Not Answered PHQ-2 Answer Date Recorded Total Score - Questions 1-9 0 03/01 Sex and Gender Information Value Date Recorded Sex Assigned at Not on file Legal Sex Male 1:24 PM CDT Gender Identity Not on file Sexual Orientation Not on file Last Filed Vital Signs Vital Sign Reading Time Taken Comments Blood Pressure 122/64 07/05/2024 10:23 AM ECONOMIC MANAGER Pulse 68 07/05/2024 10:23 AM ECONOMIC MANAGER Temperature 36.6 C (97.8 F) 07/05/2024 10:23 AM ECONOMIC MANAGER Respiratory Rate 18 07/05/2024 10:23 AM ECONOMIC MANAGER Oxygen Saturation 97% 07/05/2024 10:23 AM ECONOMIC MANAGER Inhaled Oxygen Concentration - - Weight 78 kg (172 lb) 07/05/2024 10:23 AM ECONOMIC MANAGER Height 182.9 cm (6') 07/05/2024 10:23 AM ECONOMIC MANAGER Body Mass Index 23.33 07/05/2024 10:23 AM ECONOMIC MANAGER Plan of Treatment Upcoming Encounters Date Type Department Care Team (Late st Contact Info) Description 11/29/2024 10:30 AM CDT Ancillary Procedure [facility] [address] [phone] 11/29/2024 11:45 AM CDT Office Visit [facility] [address] [address] Joel Oquendo MD [address] [place] [id number] 11/29/2024 12:00 PM CDT Clinical Support [facility] [address] [phone] Nurse, Ginny [facility] Health Maintenance Due Date Last Done Comments Hepatitis C Virus (HCV) Screening 1945 Td Immunization Every 10 Years (Adults With 1 Tdap) 07/29/2023 07/29/2013 SARS-COV-2 Immunization (7 - Pfizer risk ) 11/05/2024 05/07/2024, 05/01/2024, 05/08/2023, Additional history exists DTaP/Tdap/Td Immunization Discontinued 07/29/2013 Influenza Immunization Completed , 04/10/2024, 05/08/2023, Additional history exists Respiratory Syncytial Virus (RSV) Immunization (Adult) Completed 05/14/2024, 04/23/2024 Pneumococcal Immunization (50+ years) Completed 05/21/2024, 05/08/2024, 02/07/2019, Additional history exists Zoster Immunization Completed 07/29/2024, 05/28/2024, 05/15/2024 Hepatitis B Immunization Aged Out No longer eligible based on patient's age to complete this topic Meningococcal Immunization (ACWY) Aged Out No longer eligible based on patient's age to complete this topic Rotavirus Immunization Aged Out No lo nger eligible based on patient's age to complete this topic Procedures Procedure Name Priority Date/Time Associated Diagnosis Comments CBC WITH AUTO DIFF OH Routine 07/05/2024 10:52 AM ECONOMIC MANAGER CMP (COMPREHENSIVE METABOLIC PANEL) Routine 07/05/2024 10:52 AM ECONOMIC MANAGER Malignant neoplasm of overlapping sites of bladder (HCC) LACTATE DEHYDROGENASE (LD) Routine 07/05/2024 10:52 AM ECONOMIC MANAGER Malignant neoplasm of overlapping sites of bladder (HCC) from Last 3 Months Results * (ABNORMAL) CBC WITH AUTO DIFF OH (07/05/2024 10:52 AM ECONOMIC MANAGER) WBC 5.2 4.0 - 10.0 10*3/uL [facility] HGB 14.1 13.7 - 17.5 g/dL [facility] HCT 41.6 40.1 - 51.0 % [facility] PLT 233 163 - 369 10*3/uL [facility] MPV 9.1(L) 9.4 - 12.4 fL [facility] RBC 4.43(L) 4.63 - 6.08 10*6/uL [facility] MCV 94 79 - 95 fL [facility] MCH 31.8 25.6 - 32.2 pg [facility] [facility] MCHC 33.9 32.2 - 36.5 g/dL [facility] [facility] RDW 12.6 11.6 - 14.4 % [facility] Neutrophils % 71.9(H) 36.0 - 66.0 % [facility] Lymphocytes % 15.9(L) 19.0 - 40.0 % [facility] Monocytes % 9.6 4.1 - 12.1 % [facility] Eosinophils % 1.2 0.0 - 3.5 % [facility] Basophils % 1.2(H) 0.0 - 1.0 % [facility]OM[facility] Absolute Neutrophils 3.8 1.4 - 6.6 10*3/uL [facility] Absolute Lymphocytes 0.8 0.8 - 4.0 10*3/uL [facility] Absolute Monocytes 0.5 0.2 - 1.2 10*3/uL [facility] Absolute Eosinophils 0.1 0.0 - 0.4 10*3/uL [facility] Absolute Basophils 0.1 0.0 - 0.1 10*3/uL [facility] 07/05/2024 10:5 2 AM ECONOMIC MANAGER us Joel Oquendo MD LAB SEND OUTS Final Result [facility] [place] [address], * LACTATE DEHYDROGENASE (LD) (07/05/2024 10:52 AM ECONOMIC MANAGER) LDH 145 140 - 271 U/L [facility] Blood 07/05/2024 10:5 2 AM ECONOMIC MANAGER Narrative [facility] - 07/05/2024 11:35 AM ECONOMIC MANAGER Release to patient->Immediate Joel Oquendo MD CHEMISTRY ORDERABLES Final R esult [facility] [place] [address], * (ABNORMAL) CMP (COMPREHENSIVE METABOLIC PANEL) (07/05/2024 10:52 AM ECONOMIC MANAGER) Glucose 109(H) 70 - 105 mg/dL [facility] AUTOMOBILE BODY CUSTOMIZER [facility] Blood Urea Nitrogen 14 7 - 25 mg/dL [facility] Creatinine 0.9 0.7 - 1.3 mg/dL [facility] Sodium 137 136 - 145 mEq/L [facility] Potassium 4.5 3.5 - 5.1 mEq/L [facility] Chloride 99 98 - 107 mEq/L [facility] Bicarbonate 29 21 - 31 mEq/L [facility] Total Bilirubin 0.6 0.3 - 1.0 mg/dL [facility] Alk. Phosphatase 64 34 - 104 U/L [facility] Aspartate Aminotransferase 23 13 - 39 U/L [facility] Alanine Aminotransferase 17 7 - 52 U/L [facility] Total Protein 7.1 6.4 - 8.9 g/dL [facility] Albumin 4.3 3.5 - 5.7 g/dL [facility] Calcium 9.3 8.6 - 10.3 mg/dL [facility] Anion Gap 13.5 7.0 - 15.0 mEq/L [facility] Globulin 2.8 2.0 - 3.5 g/dL [facility] AUTOMOBILE BODY CUSTOMIZER [facility] EGFR 86 >60 ml/min/1. 73m2 [facility] Comment: This eGFR is calculated using 2020 CKD-EPI Creatinine equation without race modifier based on the NKF-ASN task force recommendations Blood 07/05/2024 10:5 2 AM ECONOMIC MANAGER Narrative [facility] - 07/05/2024 11:35 AM ECONOMIC MANAGER Release to patient->Immediate IS THE PATIENT REQUIRED TO BE FASTING FOR 8 HOURS?->No us Joel Oquendo MD CHEMISTRY ORDERABLES Final R esult [facility] [address] [place] [address], [place] [phone] from Last 3 Months Insurance MEDICARE [facility] [place] Advance Directives Documents on File Type Date Recorded Patient Fat Pressroom Worker Expl anation Power of Electronic Funds Transfer Coordinator for Health Care 12/30/2021 7:49 AM * Full Code (Latest Code Status on File) Date Activated Date Inactivated Comments 12/21/2021 4:03 PM PER 12/10/21 OF FICE VISIT NOTE. Care Teams Identity Management Consultant Relationship Specialty Start Date End Date Lam Hunt MD [address] [place] [address] PCP - General Internal Medicine 12/09/21 Joel Oquendo MD [address] [place] [address] Consulting Physician Oncology 12/09/21 Codie Devine MD [address] [place] [address] Consulting Physician Radiation Oncology 12/21/21 Arianna Mejia RN ID Oncology Nurse Navigator Oncology 12/21/21
--- OUTSIDE RECORDS SUMMARY | 2024-09-24 00:24 | XMS_ITS | Clinical Summary ---
Author Organization [facility] Address [address] [place] [address] Care Team Providers Care Counting Machine Operator Name Role Phone Lam Hunt MD Primary Care Provider [phone] Allergies Active Allergy Reactions Criticality Noted Date Comments Ciprofloxacin Hives 12/09/2021 Doxycycline Rash Low 12/09/2021 Metronidazole GI Upset 12/09/2021 Prednisone Anxiety Low 12/09/2021 Medications aspirin 81 MG chewable tablet Chew 81 mg by mouth daily. Active atorvastatin 10 MG tablet Take 10 mg by mouth daily. 2 Active finasteride 5 MG tablet finasteride 5 mg tablet TAKE 1 TABLET BY MOUTH EVERY DAY Active HYDROcodone-jena taminophen 5-325 MG tablet hydrocodone 5 mg-acetaminophen 325 mg tablet TAKE 1 TO 2 TABLETS BY MOUTH EVERY 6 HOURS NEEDED Active ibuprofen 800 MG tablet Take 800 mg by mouth every 8 (eight) hours as needed. 2 Active lansoprazole 30 MG capsule daily. Active tamsulosin 0.4 MG Cap Take 1 capsule (0.4 mg total) by mouth daily. 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 Social History Tobacco Use Types Packs/Day Years Used Date Smoking Tobacco: Former Cigarettes 1.5 40 Smokeless Tobacco: Never Tobacco Cessation:Counseling Given: Not Answered Comments:reportedly quit 18yrs ago Alcohol Use Standard Drinks/Week Comments Not Currently 0 (1 standard drink = 0.6 oz pur e alcohol) Sex and Gender Information Value Date Recorded Sex Assigned at Not on file Legal Sex Male 9:24 AM CDT Gender Identity Not on file Sexual Orientation Not on file Last Filed Vital Signs Vital Sign Reading Time Taken Comments Blood Pressure 158/84 05/31/2024 9:38 AM CDT Pulse 73 05/31/2024 9:38 AM CDT Temperature 36.6 C (97.8 F) 08/09/2022 3:03 PM BACTERIOLOGY TEACHER Respiratory Rate 18 08/09/2022 3:03 PM BACTERIOLOGY TEACHER Oxygen Saturation 97% 05/31/2024 9:38 AM CDT Inhaled Oxygen Concentration - - Weight 78.5 kg (173 lb) 05/31/2024 9:38 AM CDT Height 182.9 cm (6') 05/31/2024 9:38 AM CDT Body Mass Index 23.46 05/31/2024 9:38 AM CDT Plan of Treatment Upcoming Encounters Date Type Department Care Team (Late st Contact Info) Description 11/29/2024 11:30 AM CDT Appointment [facility] Radiation Oncology [address] [place] [address] [place] [address] Javan Hightower MD [address] [place] [id number] Health Maintenance Due Date Last Done Comments Zoster Vaccines (1 of 2) 1993 Annual Medicare Wellness Visit 2008 RSV Immunization or 60+ Years (1 - 1-dose 75+ series) 2018 DTaP, Tdap and Td Vaccines (2 - Td or Tdap) 07/29/2023 07/29/2013 COVID-19 Vaccine ( season) 2024 05/08/2023, 05/11/2022, 05/23/2021, Additional history exists Influenza Adult (#1) 2024 05/08/2023, 05/27/2019, 05/09/2018, Additional history exists Pneumococcal Vaccine: 65+ Years Completed 02/07/2019, 08/11/2016 Meningococcal B Vaccine Aged Out No l onger eligible based on patient's age to complete this topic Meningococcal Vaccine Aged Out No yee rosa eligible based on patient's age to complete this topic RSV Immunizations Under 20 Months Aged Out No longer eligible based on patient's age to complete this topic Insurance MEDICARE [facility] Advance Directives Documents on File Type Date Recorded Patient Diesel Crane Operator Expl anation Power of Him Manager 12/09/2021 POA 2021 Care Teams Counting Machine Operator Relationship Specialty Start Date End Date Lam Hunt MD [address] [facility] [address] [place] [address] PCP - General INTERNAL MEDICINE 12/09/21
--- OUTSIDE RECORDS SUMMARY | 2024-09-24 00:24 | XMS_ITS | Encounter Summary ---
Author Organization [facility] Address [address] [facility] [place] [address] Care Team Providers Care Automobile Assembly Supervisor Name Role Phone Hermann Kuhn MD Primary Care Provider [phone] Lam Hunt MD Primary Care Provider [phone] Encounter Details Date Type Department Care Team (Late st Contact Info) Description 02/25/2021 Lab Requisition [facility] DermPath Lab [address] [facility], [place] [phone] Jarrell Burrell MD [address] [place] [address] Social History Tobacco Use Types Packs/Day Years Used Date Smoking Tobacco: Former Sex and Gender Information Value Date Recorded Sex Assigned at Not on file Gender Identity Not on file Sexual Orientation Not on file documented as of this encounter Plan of Treatment Not on file documented as of this encounter Procedures Procedure Name Priority Date/Time Associated Diagnosis Comments DERMATOPATHOLOGY Routine 02/24/2021 12:0 0 AM CDT documented in this encounter Results * DERMATOPATHOLOGY (02/24/2021 12:00 AM CDT) Case Report Dermatopathology Report Case: [id number] Authorizing Provider: Jarrell Burrell MD Collected: 02/24/2021 12:00 AM Ordering Location: [facility] DermPath Lab Received: 02/25/2021 08:22 AM Pathologist: Lore Thomas MD Specimen: Skin, right ant hairline 4:11 PM CDT DERMATOPATHOLOGY LABORATORY Final Diagnosis Specimen A. SKIN, right ant hairline: SEBORRHEIC KERATOSIS (L82.1) 4:11 PM CDT DERMATOPATHOLOGY LABORATORY Clinical History BCCA vs SK 4:11 PM CDT DERMATOPATHOLOGY LABORATORY Gross Description Specimen A: Received is one formalin filled container labeled with the patient's name and designated right ant hairline. The specimen consists of a shave biopsy measuring 10x9x3 mm. Jar 0. 4:11 PM CDT DERMATOPATHOLOGY LABORATORY Microscopic Description Specimen A. SKIN, right ant hairline: Sections show an acanthotic lesion composed of relatively uniform keratinocytes. There is hyperkeratosis and pseudo horn cysts formation. 4:11 PM CDT DERMATOPATHOLOGY LABORATORY Disclaimer An external and internal positive and negative controls are appropriate for the histochemical, immunohistochemical and immunofluorescence stain(s) in this case (if any), except where stated explicitly. The performance characteristics of the stain(s) cited in this report were developed and its performance characteristic determined by the Dermatopathology Laboratory at [facility], directed by Dr. Demetrio Cee. These tests need not be, and therefore are not, approved by the [place] Food and Drug Administration. The tests are used for clinical purposes. Billing Codes Specimen Charges Stain Charges 23702 1 4:11 PM CDT DERMATOPATHOLOGY LABORATORY Embedded Images 4:11 PM CDT DERMATOPATHOLOGY LABORATORY Pathology/Cytolog y TISSUE SPECIMEN FROM SKIN / Unknown 02/24/2021 02/25/2021 8:22 AM CDT Jarrell Burrell MD LAB - PATHOLOGY/CYTO LOGY ORDERABLES DERMATOPATHOLOGY LABORATORY [facility] - Department of Dermatology [address], [address] [phone] documented in this encounter Visit Diagnoses Not on filedocumented in this encounter Care Teams Automobile Assembly Supervisor Relationship Specialty Start Date End Date Hermann Kuhn MD [address] [facility] [address] [place] [address] PCP - General 03/24/09 11/29/21 Lam Hunt MD [address] [facility] [address] [place] [address] PCP - General 11/30/21 documented as of this encounter
--- OUTSIDE RECORDS SUMMARY | 2024-09-24 00:24 | XMS_ITS | Encounter Summary ---
Author Organization [facility] Address [address] [facility] [place] [address] Care Team Providers Care Fur Cutting Machine Operator Name Role Phone Lam Hunt MD Primary Care Provider [phone] Encounter Details Date Type Department Care Team (Late st Contact Info) Description 09/05/2022 Lab Requisition [facility] DermPath Lab [address] [facility], [place] [phone] Jarrell Burrell MD [address] [facility] [place] [address] Social History Tobacco Use Types Packs/Day Years Used Date Smoking Tobacco: Former Sex and Gender Information Value Date Recorded Sex Assigned at Not on file Gender Identity Not on file Sexual Orientation Not on file documented as of this encounter Plan of Treatment Not on file documented as of this encounter Procedures Procedure Name Priority Date/Time Associated Diagnosis Comments DERMATOPATHOLOGY Routine 09/05/2022 12:0 0 AM STEEL LAYER documented in this encounter Results * DERMATOPATHOLOGY (09/05/2022 12:00 AM STEEL LAYER) Case Report Dermatopathology Report [id number]: [id number] Authorizing Provider: Jarrell Burrell MD Collected: 09/05/2022 12:00 AM Ordering Location: [facility] DermPath Lab Received: 09/05/2022 04:23 PM Pathologist: Lore Thomas MD Specimens: A) - Skin, left mid muslim B) - Skin, right lateral forehead C) - Skin, mid upper chest 3 5:33 PM [facility] DERMATOPATHOLOGY LABORATORY Final Diagnosis Specimen A. SKIN, left mid muslim: SQUAMOUS CELL CARCINOMA, MODERATELY DIFFERENTIATED (C44.329) Specimen B. SKIN, right lateral forehead: SEBORRHEIC KERATOSIS, RETICULATED (ADENOID) TYPE (L82.1) Specimen C. SKIN, mid upper chest: SQUAMOUS CELL CARCINOMA IN SITU (ANTHONY'S DISEASE) (D04.5) SEBORRHEIC KERATOSIS (L82.1) 3 5:33 PM [facility] DERMATOPATHOLOGY LABORATORY Clinical History A: BCC vs. SCC Path# [id number] B: BCC vs. SCC Path# [id number] C: BCC vs. SCC Path# [id number] 3 5:33 PM [facility] DERMATOPATHOLOGY LABORATORY Gross Description Specimen A: Received is one formalin filled container labeled with the patient's name and designated left mid muslim. The specimen consists of a shave biopsy measuring 7x7x1 mm. Jar 0. Specimen B: Received is one formalin filled container labeled with the patient's name and designated right lateral forehead. The specimen consists of a shave biopsy measuring 67u30a9 mm. Jar 0. Specimen C: Received is one formalin filled container labeled with the patient's name and designated mid upper chest. The specimen consists of a shave biopsy measuring 8x6x1 mm. Jar 0. 3 5:33 PM [facility] DERMATOPATHOLOGY LABORATORY Microscopic Description Specimen A. SKIN, left mid muslim: There are nests of squamous epithelial cells which arise from the epidermis and extend into the dermis. The nests have only focal central keratinization and rare horn donna formation. BerEP4 stained sections do not highlight the tumor, supporting the above diagnosis. Specimen B. SKIN, right lateral forehead: There is reticulated hyperplasia of the epidermis with overlying delicate hyperorthokeratosis . Hyperpigmentation is present in the basaloid cells. Specimen C. SKIN, mid upper chest: The epidermis shows parakeratosis, full thickness disorderly maturation of keratinocytes, mitoses at different levels, and dyskeratotic cells. There is an adjacent acanthotic lesion composed of relatively uniform keratinocytes. There is hyperkeratosis and pseudo horn cysts formation. 3 5:33 PM STEEL LAYER DERMATOPATHOLOGY LABORATORY Disclaimer An external and internal positive and negative controls are appropriate for the histochemical, immunohistochemical and immunofluorescence stain(s) in this case (if any), except where stated explicitly. The performance characteristics of the stain(s) cited in this report were developed and its performance characteristic determined by the Dermatopathology Laboratory at [facility], directed by Dr. Demetrio Cee. These tests need not be, and therefore are not, approved by the [place] Food and Drug Administration. The tests are used for clinical purposes. Billing Codes Specimen Charges Stain Charges 60190 19759 93904 1 1 1 07593 1 5:33 PM STEEL L[facility]ER DERMATOPATHOLOGY LABORATORY Embedded Images 5:33 PM STEEL [facility]ER DERMATOPATHOLOGY LABORATORY Pathology/Cytology TISSUE SPECIMEN FROM SKIN / Unknown 09/05/2022 09/05/2022 4:23 PM STEEL LAYER Miscellaneous samples (specimen) TISSUE SPECIMEN FROM SKIN / Unknown 09/05/2022 09/05/2022 4:23 PM STEEL LAYER Miscellaneous samples (specimen) TISSUE SPECIMEN FROM SKIN / Unknown 09/05/2022 09/05/2022 4:23 PM STEEL LAYER Jarrell Burrell MD LAB - PATHOLOGY/CYTO LOGY ORDERABLES DERMATOPATHOLOGY LABORATORY [facility] - Department of Dermatology [facility] [address] [place] [address], [address] [phone] documented in this encounter Visit Diagnoses Not on filedocumented in this encounter Care Teams Fur Cutting Machine Operator Relationship Specialty Start Date End Date Lam Hunt MD PCP - General 11/30/21 documented as of this encounter
--- OUTSIDE RECORDS SUMMARY | 2024-09-24 00:24 | XMS_ITS | Patient Health Summary ---
Author Organization [facility] Address [address] [facility] [place] [address] Care Team Providers Care Artificial Inseminator Name Role Phone Lam Hunt MD Primary Care Provider [phone] Note from [facility],non-owned Affiliates and Associated Physician Practices is amultiple site organization consisting of ambulatory clinics and hospital sitesin [place], [place], [place] and [place]. This disclosure is being madepursuant to the Care Everywhere program and may not contain all information available regarding this patient. Last updated 18.[facility] Allergies No known active allergies Medications * Be aware that medications may not be up to date on this document. Alwaysverify current medications with the patient. * lansoprazole (PREVACID) 15 MG capsule Take 15 mg by mouth daily before breakfast. * finasteride (PROSCAR) 5 MG tablet Take 5 mg by mouth daily. * tamsulosin CR 24hr (FLOMAX) 0.4 MG capsule Take 0.4 mg by mouth daily. Take 30 minutes after a meal at the same time each day. * aspirin 81 MG chew tablet Take 81 mg by mouth daily. * gabapentin (NEURONTIN) 300 MG tablet Take 300 mg by mouth 3 times daily. Active Problems Problem Noted Date Diagnosed Date Chronic pain 11/29/2010 Social History Tobacco Use Types Packs/Day Years Used Date Smoking Tobacco: Former Sex and Gender Information Value Date Recorded Sex Assigned at Not on file Gender Identity Not on file Sexual Orientation Not on file Last Filed Vital Signs Vital Sign Reading Time Taken Comments Blood Pressure 133/83 11/29/2010 11:36 AM CDT Pulse 70 11/29/2010 11:36 AM CDT Temperature - - Respiratory Rate 16 11/29/2010 11:36 AM CDT Oxygen Saturation 96% 11/29/2010 11:36 AM CDT Inhaled Oxygen Concentration - - Weight - - Height - - Body Mass Index - - Procedures * DERMATOPATHOLOGY(Performed 03/06/2023) * DERMATOPATHOLOGY(Performed 09/22/2022) * DERMATOPATHOLOGY(Performed 09/05/2022) * DERMATOPATHOLOGY(Performed 02/24/2021) * DERMATOPATHOLOGY(Performed 03/05/2020) * DERMATOPATHOLOGY(Performed 01/27/2020) * PAIN MANAGEMENT PROCEDURE TIME(Performed 11/29/2010) Performed for Lumbosacral spondylosis without myelopathy, Spinal stenosis, lumbar region, without neurogenic claudication, Displacement of lumbar intervertebral disc without myelopathy, Thoracic or lumbosacral neuritis or radiculitis, unspecified * PAIN MANAGEMENT PROCEDURE TIME(Performed 11/22/2010) Performed for Lumbosacral spondylosis without myelopathy, Spinal stenosis, lumbar region, without neurogenic claudication, Displacement of lumbar intervertebral disc without myelopathy, Thoracic or lumbosacral neuritis or radiculitis, unspecified * PAIN MANAGEMENT PROCEDURE TIME(Performed 11/15/2010) Performed for Lumbosacral spondylosis without myelopathy, Spinal stenosis, lumbar region, without neurogenic claudication Results * DERMATOPATHOLOGY (03/06/2023 3:33 AM CDT) Only the most recent of6 resultswithin the time period is included. Case Report Dermatopathology Report Case: [id number] Authorizing Provider: Jarrell Burrell MD Collected: 03/06/2023 03:33 AM Ordering Location: [facility] DermPath Lab Received: 03/08/2023 06:20 AM Pathologist: Myles Cee MD Specimen: Skin, right scaphoid fossaa 2:34 PM CDT DERMATOPATHOLOGY LABORATORY Final Diagnosis Specimen A. 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 The specimen consists of a shave biopsy measuring 6x5x1 mm. Jar 0 3 2:34 PM CDT DERMATOPATHOLOGY LABORATORY Microscopic Description Specimen A. SKIN, : Within the dermis there are nodular aggregates of basaloid cells associated with fibromyxoid stroma and epithelial-stromal clefts. At the advancing margin of the neoplasm, there are smaller angulated nests that infiltrate the dermis. There is focal dermal fibrosis. 3 2:34 PM CDT DERMATOPATHOLOGY LABORATORY Disclaimer An external and internal positive and negative controls are appropriate for the histochemical, immunohistochemical and immunofluorescence stain(s) in this case (if any), except where stated explicitly. The performance characteristics of the stain(s) cited in this report were developed and its performance characteristic determined by the Dermatopathology Laboratory at [facility], directed by Dr. Demetrio Cee. These tests need not be, and therefore are not, approved by the [place] Food and Drug Administration. The tests are used for clinical purposes. Billing Codes Specimen Charges Stain Charges 41963 1 3 2:34 PM CDT DERMATOPATHOLOGY LABORATORY Embedded Images 3 2:34 PM CDT DERMATOPATHOLOGY LABORATORY Pathology/Cytolo gy TISSUE SPECIMEN FROM SKIN / Unknown 03/06/2023 3:33 AM CDT 03/08/2023 6:20 AM CDT Jarrell Burrell MD LAB - PATHOLOGY/CYTO LOGY ORDERABLES DERMATOPATHOLOGY LABORATORY [facility] - Department of Dermatology [address], [address] [phone] * PAIN MANAGEMENT PROCEDURE TIME (11/29/2010 11:30 AM CDT) Only the most recent of3 resultswithin the time period is included. Anatomical Region Laterality Modality X-Ray Angiograph y Narrative 11/29/2010 11:34 AM CDT JONATHAN RAM 11/29/2010 11:34:28 AM Lumbar YUMIKO L5-S1 Femi Alix Provider: Jonathan Ram MD 1945 Date: 11/29/2010 Hermann Kuhn MD Pt. prestents today for a injection. Allergies: Allergies as of 11/29/2010 (No Known Allergies) Procedures: Epidural L5-S1 Informed Consent: After the patient was informed of the risks and benefits of the procedure and all questions were answered, consent was signed. Prep: Pt identified, proper procedure identified, site identified, and marked by Dr. Ram. Pt is not on Coumidin, Plavix or other blood thinners. Responsible wedding transportation driver is not needed due to the patient not having sedation. The patient was placed in a prone position and was prepped withsterile H2O alcohol, iodine tincture were used as the preparations agents. Procedure: Lidocaine 1% was injected with a 25 gauge needle at L5 verifying placement with the guided fluoroscopy. An 18 gauge Touhy needle was placed into the epidural space using loss or resistance technique with preservative free (PF) normal saline. No cerebral spinal fluid or blood was aspirated prior to the injection. 80 milligrams of Depo medrol and saline were injected into the epidural space. Complications: None The patient tolerated the procedure well and there were no complications. The patient was taken to the recovery area. The patient remained in stable condition with no apparent complications. Vital signs stable. Injection site clean, dry, and intact. Post procedure instructions were given to the patient and a follow up appointment was confirmed. The patient was discharged with information on how to reach the clinic at anytime for questions or concerns. Pt ambulatory, denies complaints, DC to home. Pt survey given. Procedure code: Epi Lum/cad, Flouro Follow Up: 1 week Jonathan Ram MD Procedure Note Jonathan Ram MD - 11/29/2010 11:33 AM CDT Lumbar YUMIKO L5-S1 Femi AlixProvider: Jonathan Ram MD 4Date: 11/29/2010 Hermann Kuhn MD Pt. prestents today for a injection. Allergies: Allergies as of 11/29/2010 (No Known Allergies) Procedures: Epidural L5-S1 Informed Consent: After the patient was informed of the risks andbenefits of the procedure and all questions were answered, consent wassigned. Prep: Pt identified, proper procedure identified, site identified, andmarked by Dr. Ram. Pt is not on Coumidin, Plavix or other bloodthinners. Responsible wedding transportation driver is not needed due to the patient not havingsedation. The patient was placed in a prone position and was prepped withsterile [id number], iodine tincture were used as the preparations agents. Procedure: Lidocaine 1% was injected with a 25 gauge needle at [id number] placement with the guided fluoroscopy. An 18 gauge Touhy needlewas placed into the epidural space using loss or resistance technique withpreservative free (PF) normal saline. No cerebral spinal fluid or bloodwas aspirated prior to the injection. 80 milligrams of Depo medrol andsaline were injected into the epidural space. Complications: None The patient tolerated the procedure well and there were no complications.The patient was taken to the recovery area. The patient remained instable condition with no apparent complications. Vital signs stable.Injection site clean, dry, and intact. Post procedure instructions weregiven to the patient and a follow up appointment was confirmed. Thepatient was discharged with information on how to reach the clinic atanytime for questions or concerns. Pt ambulatory, denies complaints, DCto home. Pt survey given. Procedure code: Epi Lum/cad, Flouro Follow Up: 1 week Jonathan Ram MD Jonathan Ram MD [facility] Care Teams Artificial Inseminator Relationship Specialty Start Date End Date Lam Hunt MD PCP - General 11/30/21
--- OUTSIDE RECORDS SUMMARY | 2024-09-24 00:24 | XMS_ITS | Clinical Summary ---
Author Organization [facility] Address [address] [place] [phone] Care Team Providers Care Chilling Hood Operator Name Role Phone Hermann Kuhn MD Primary Care Provider [phone] Social History Tobacco Use Types Packs/Day Years Used Date Smoking Tobacco: Never Assessed Sex and Gender Information Value Date Recorded Sex Assigned at Not on file Legal Sex Male 6:01 AM CRIME VICTIM SPECIALIST Gender Identity Not on file Sexual Orientation Not on file Plan of Treatment Health Maintenance Due Date Last Done Comments DTAP/TDAP/TD VACCINES (1 - Tdap) 1962 PNEUMOCOCCAL VACCINE 65+ YEARS (1 of 1 - PCV) 09/27/18 94 ZOSTER VACCINE (1 of 2) 1993 RSV VACCINE (60+ or ) (1 - 1-dose 75+ series) 2018 INFLUENZA VACCINE (#1) 2024 Insurance MEDICARE PART A AND B BC SUPP Care Teams Chilling Hood Operator Relationship Specialty Start Date End Date Hermann Kuhn MD PCP - General 07/17/15
--- OUTSIDE RECORDS SUMMARY | 2024-09-24 00:24 | XMS_ITS ---
Author Organization [facility] Address [address] [place] [address] Care Team Providers Care Remotely Piloted Vehicle Controller Name Role Phone Lam Hunt MD Primary Care Provider [phone] Active Problems Problem Noted Date Diagnosed Date Malignant tumor of urinary bladder (CMS/HCC HHS/ HCC) 12/03/2021 Current Oncology Plans No current plan information found. Past Plans No past plan information found. Radiation Treatments * Plan Last Treated On Elapsed Days Fractions Treated Prescribed Fraction Dose Prescribed Total Dose Bladder [facility] 02/21/2022 7 of 7 Bladder 02/10/2022 28 of 28 Reference Point Last Treated On Elapsed Days Session Dose Total Dose Bladder [facility] 02/21/2022 13 PTV_50.4 02/10/2022 50 Treatment Summaries Malignant tumor of urinary bladder (CMS/HCC HHS/HCC)* Images from the original note were not included. Survivorship Care Plan Patient Name Femi Thomson Date of 1945 Plan Completed By Kristin STAFFORD on 10/19/22 Care Team Medical Oncologist Dr. Oquendo [phone] Matos [phone] Devine [phone] Primary Care Physician LAM HUNT MD [phone] Nurse Navigator Kristin STAFFORD [phone] Diagnosis Malignant tumor of urinary bladder (CMS/HCC) Age at diagnosis 76-year-old Pertinent past medical history No past medical history on file. Diagnostic Procedures CT Abdomen and pelvis on 04/07/21 CT Abdomen and pelvis on 10/12/21 PET Scan on 12/09/21 Surgery TURBT on 11/25/21 Chemotherapy and Other Treatments Cisplatin concurrent XRT Treatment on clinical trial? No Pre-operative chemotherapy administered? No Radiation Treatment Site: Bladder Total Dose: 6300 cGy Treatment Dates: 01/03/22-02/21/22 Ongoing Toxicities and Side Effects Pt doing well overall Follow-Up Care Radiation Oncology- 6 month follow up Medical Oncology- per Dr. Oquendo Urologist- per Dr. Matos Body Mass Index or BMI is one way to determine if a person???s weight places them at risk for disease such as diabetes, heart disease and cancer. Below 18.5-underweight 18.5-24.9-normal or healthy weight 25-29.9-overweight 30-39.9-obese 40 and above-morbidly obese Your Body mass index is 22.65 kg/m??. Other Concerns and Resources If you are experiencing issues with emotional or mental health, parenting, work/employment, finances, and/or insurance, there may be local and national resources available to assist you. Please discuss this with your oncology team and/or primary care provider for additional information. Below is a general list of resources: Cancer Support Resources at [facility] https://www.[facility].org/StElizabeths/Services/Cancer-Care/Cancer-Center [facility] offers services for lifestyle management for mind-body health. Services range from yoga, individual and group smoking cessation counseling to mind/body skills instruction and mindfulness classes. Call for more information. Clinical Trials are available for adults through [employer], a national cooperative group. Call for more information. Dietary Services are available from registered dietitians who can perform nutritional assessments and give advice on dietary problems. Call for more information. Home Health Services are available after a hospital admission. These individuals can provide comfort in the home setting along with support and education. Call for more information. Inpatient Work Counselor & Case Management Services Inpatient oncology social workers can help with home services, placement of patients, transportation, crisis intervention and communityresources. Care coordination for patients is done through this service, especially in outlying areas. Call for more information. Nurse Navigator This individual helps guide cancer patients during this challenging and difficult time. She identifies needs and coordinates services of care and designs individualized survivorship care plans after treatment is complete. Call ext [phone] or ext [phone] for more information. Occupational, Speech and Physical Therapy Therapy services are helpful for cancer patients from theinitial diagnosis, through survivorship or the end stages of care. Cancer and its treatment sometimes improves physical abilities but not functional outcomes. Therapy interventions used are holistic and comprehensive. Varying services are offered at seven [facility] outpatient clinics in [facility]. Call [phone] for more information. Palliative Care, Pain Management and Hospice Palliative Care can help patients and their significant others understand health care decisions to help guide a plan of care that is in line with their personal beliefs and values. The team also offers a comprehensive assessment of pain and other symptoms and can work with the patient's primary health care provider to improve quality of life. Call for more information. Spiritual Care Chaplains can provide spiritual comfort for the mind, body and spirit. Call for more information. Radiation Therapy and [facility] Radiation Therapy offers state of the art radiation for cancer patients. The Day Hospital offers an outpatient area for chemotherapy, blood infusions, dressing changes and antibiotics. Call [phone] for more information. Regional W[facility] Center The Wound Center heals chronic, non-healing wounds. Call for more information. Wound, Ostomy, Continence Services Services range from wound care, ostomy appliance teaching and continence service for any patient needing these services. Call for more information. Resources for Cancer Support [facility] provides care for those who cannot afford to pay through its Anju Care Program. More information is available at https://www.[facility].org/StElizabeths/Patients-Guests/Oxlqobt-Krhawiutc-Avinwecd [facility] [employer] [facility] [employer] provides financial assistance, to those who qualify, regardless of whether aperson is insured. More information is available at www. [facility].org/Public/FinancialAssistance.aspx. [place] Department of Public Health protects the state's residents and visitors through the prevention and control of disease and injury. Website: https://www.[facility].[place].gov/topics-services/ounolmmo-ebu-lwnvkeuzrc/cancer [place] [employer] is a national nonprofit organization with programs and services provided through local [place] [employer] Society offices, as well as its Clinical Navigation program based at [facility] Cancer [place] at [facility]. Websites: www.cancer.org and www.[facility]/cancer/navigator. html. Government Assistance Programs There are several federal and state programs that provide financial assistance to individuals and families. This assistance, known as entitlements, are primarily set up for low-income households, theelderly and the disabled. Each entitlement has eligibility requirements. There are also programs administered through state governments that can help with health-care related needs. Government Assistance Programs include: U.S. Department of Health & Human Services Information on public assistance and food stamps. Check phonebook for your local office. www.hhs.gov. U.S. Administration on Aging Benefits for older adults. 903.521.3728 www.eldercare.gov ([employer] Instructional Design Consultant finds resources in your community). Social Security Administration 583-598-6207 www.ssa.gov Centers for Medicare & Medicaid Services 322-875-8708 www.cms.gov National Cancer [place] www.cancer.gov Pharmaceutical Patient Assistance Programs Programs and services offered differ among drug manufacturers but may include: Help with insurance reimbursement. Referrals to co pay relief programs Help with the application process Discounted or free medications for patients who do not qualify for other assistance Partnership for Prescription Assistance (PPA) 918-7-HAT-NOW (788-241-8571) www.pparx.org Insurance Coverage www.getcovered[place].org To see if the drug company that makes your medication has a patient assistance program, check its web site, ask your doctor or check with the PPA. PPA has a list of pharmaceutical programs and other resources for financial assistance. People with cancer often need assistance with expenses like transportation, home care and early childhood director. A number of nonprofit organizations have useful programs or referral information that may be able to help. Cancer Organizations CancerCare 971-458-XDLS(9501) www.cancercare.org [employer] [employer] 031-NII-6272 www.cancer.org Leukemia & Lymphoma Society 701-348-9030 www.lls.org Lung Cancer [place] www.lungcanceralliance.org Lymphoma Research Foundation 794-584-0393 www.lymphoma.org National Marrow Donor Program 782-576-1356 www.marrow.org National Ovarian Cancer Coalition www.ovarian.org Pancreatic Cancer Action Network www.pancan.org Patient Advocate Colorectal Careline 441-295-9164 www.colorectalcareline.org Sarcoma [place] 826-597-7592 www.sarcomaalliance.org General Organizations [place] www.[employer] (Inspect Manager).[employer] Community Organizations Check phonebook under social service agencies Amin[place]-based Organizations Includes Hospitalists Now, [employer], [employer] and others. Check phonebook for listings. Lazarex Cancer Foundation (Clinical Trial information and support) www.lazarex.org Leukemia Research Foundation www.leukemia-research.org Bladder Cancer Advocacy Network www.bcan.org Support for People with Oral Head and Neck Cancer (SPOHNC) www.spohnc.org [employer]dsey [employer] / Netcyclermen Breast Cancer Organization 583-731-9043 5.VOYAA.org/BreastCancer/1877GOKOMEN.html Resolved Problems Problem Noted Date Diagnosed Date Resolved Date [place] cell cancer (CMS/HCC HHS/HCC) 01/11/2022 01/11/2022
--- OUTSIDE RECORDS SUMMARY | 2024-09-24 00:24 | XMS_ITS | Encounter Summary ---
Author Organization [facility] Address [address] [place] [address] Care Team Providers Care Chainman Name Role Phone Hermann Kuhn MD Primary Care Provider [phone] Lam Hunt MD Primary Care Provider [phone] Encounter Details Date Type Department Care Team (Late st Contact Info) Description 01/28/2020 Lab Requisition [facility] DermPath Lab [address], [place] [id number] Jarrell Burrell MD [address] [place] [address] Social History Tobacco Use Types Packs/Day Years Used Date Smoking Tobacco: Former Sex and Gender Information Value Date Recorded Sex Assigned at Not on file Gender Identity Not on file Sexual Orientation Not on file documented as of this encounter Plan of Treatment Not on file documented as of this encounter Procedures Procedure Name Priority Date/Time Associated Diagnosis Comments DERMATOPATHOLOGY Routine 01/27/2020 12:0 0 AM CDT documented in this encounter Results * DERMATOPATHOLOGY (01/27/2020 12:00 AM CDT) Case Report Dermatopathology Report Case: [id number] Authorizing Provider: Jarrell Burrell MD Collected: 01/27/2020 12:00 AM Ordering Location: [facility] DermPath Lab Received: 01/28/2020 07:37 AM Pathologist: Dai Corona MD Specimen: Skin, left nape 0 5:50 PM CDT DERMATOPATHOLOGY LABORATORY Final Diagnosis Specimen A. SKIN, left nape: BASAL CELL CARCINOMA, SUPERFICIAL MULTIFOCAL (C44.41) 0 5:50 PM CDT DERMATOPATHOLOGY LABORATORY Clinical History BCC vs SCC. Path# [id number] 0 5:50 PM CDT DERMATOPATHOLOGY LABORATORY Gross Description Specimen A: Received is one formalin filled container labeled with the patient's name and designated left nape. The specimen consists of a shave biopsy measuring 9x6x1 mm. Jar 0. 0 5:50 PM CDT DERMATOPATHOLOGY LABORATORY Microscopic Description Specimen A. SKIN, left nape: Attached to the undersurface of the epidermis, there are small aggregates of basaloid cells with a high nuclear to cytoplasmic ratio and peripheral palisading. 0 5:50 PM CDT DERMATOPATHOLOGY LABORATORY Disclaimer An external and internal positive and negative controls are appropriate for the histochemical, immunohistochemical and immunofluorescence stain(s) in this case (if any), except where stated explicitly. The performance characteristics of the stain(s) cited in this report were developed and its performance characteristic determined by the Dermatopathology Laboratory at [facility], directed by Dr. Demetrio Cee. These tests need not be, and therefore are not, approved by the [place] Food and Drug Administration. The tests are used for clinical purposes. Billing Codes Specimen Charges Stain Charges 18788 1 0 5:50 PM CDT DERMATOPATHOLOGY LABORATORY Embedded Images 0 5:50 PM CDT DERMATOPATHOLOGY LABORATORY Pathology/Cytolog y TISSUE SPECIMEN FROM SKIN / Unknown 01/27/2020 01/28/2020 7:37 AM CDT Jarrell Burrell MD LAB - PATHOLOGY/CYTO LOGY ORDERABLES DERMATOPATHOLOGY LABORATORY [facility] - Department of Dermatology Mail Examiner [place]/[address] [phone] documented in this encounter Visit Diagnoses Not on filedocumented in this encounter Care Teams Chainman Relationship Specialty Start Date End Date Hermann Kuhn MD [address] [place] [address] PCP - General 03/24/09 11/29/21 Lam Hunt MD [address] [place] [address] PCP - General 11/30/21 documented as of this encounter
--- OUTSIDE RECORDS SUMMARY | 2024-09-24 00:24 | XMS_ITS | Clinical Summary ---
Author Organization [facility] Address [address] [place] [address] Care Team Providers Care Gum Sprayer Name Role Phone Lam Hunt MD Primary Care Provider [phone] Source Comments [facility],non-owned Affiliates and Associated Physician Practices is amultiple site organization consisting of ambulatory clinics and hospital sitesin [place], [place] and [place]. This disclosure is being madepursuant to the Care Everywhere program and may not contain all information available regarding this patient. Last updated 18.[facility] [employer] Allergies No known active allergies Medications * Be aware that medications may not be up to date on this document. Alwaysverify current medications with the patient. Medication Sig Dispensed Refills Start Date End Date Status lansoprazole (PREVACID) 15 MG capsule Take 15 mg by mouth daily before breakfast. Active finasteride (PROSCAR) 5 MG tablet Take 5 mg by mouth daily. Active tamsulosin CR 24hr (FLOMAX) 0.4 MG capsule Take 0.4 mg by mouth daily. Take 30 minutes after a meal at the same time each day. Active aspirin 81 MG chew tablet Take 81 mg by mouth daily. Active gabapentin (NEURONTIN) 300 MG tablet Take 300 mg by mouth 3 times daily. Active Active Problems Problem Noted Date [...] - - Body Mass Index - - Plan of Treatment Health Maintenance Due Date Last Done Comments MEDICARE AWV 12 MONTHS 1945 DTAP/TDAP/TD VACCINES (1 - Tdap) 1962 PNEUMOCOCCAL VACCINE 50+ (1 of 1 - PCV) 1993 ZOSTER VACCINE (1 of 2) 1993 Respiratory Syncytial Virus (RSV) Vaccine Pt: or over 60 yrs (1 - 1-dose 75+ series) 2018 COVID-19 VACCINE ( - 2023-2 5 season) 2024 INFLUENZA VACCINE (#1) 2024 DEPRESSION SCREENING 07/31/2024 HEPATITIS B VACCINE Aged Out No longe r eligible based on patient's age to complete this topic HIB VACCINE Aged Out No longer eligi ble based on patient's age to complete this topic HPV VACCINE Aged Out No longer eligi ble based on patient's age to complete this topic MENINGOCOCCAL (Group B) VACCINE Aged Out No longer eligible based on patient's age to complete this topic MENINGOCOCCAL VACCINE Aged Out No yee rosa eligible based on patient's age to complete this topic Care Teams Gum Sprayer Relationship Specialty Start Date End Date Lam Hunt MD PCP - General 11/30/21
--- OUTSIDE RECORDS SUMMARY | 2024-09-24 00:24 | XMS_ITS | Encounter Summary ---
Author Organization [facility] Address [address] [place] [address] Care Team Providers Care Automotive Accessory Installer Name Role Phone Lam Hunt MD Primary Care Provider [phone] Encounter Details Date Type Department Care Team (Late st Contact Info) Description 09/22/2022 Lab Requisition [facility] DermPath Lab [address] [facility] [place] [id number] Jarrell Burrell MD [address] [place] [address] Social History Tobacco Use Types Packs/Day Years Used Date Smoking Tobacco: Former Sex and Gender Information Value Date Recorded Sex Assigned at Not on file Gender Identity Not on file Sexual Orientation Not on file documented as of this encounter Plan of Treatment Not on file documented as of this encounter Procedures Procedure Name Priority Date/Time Associated Diagnosis Comments DERMATOPATHOLOGY Routine 09/22/2022 12:0 0 AM MDM SR documented in this encounter Results * DERMATOPATHOLOGY (09/22/2022 12:00 AM MDM SR) Case Report Dermatopathology Report Case: [id number] Authorizing Provider: Jarrell Burrell MD Collected: 09/22/2022 12:00 AM Ordering Location: [facility] DermPath Lab Received: 09/22/2022 04:50 PM Pathologist: Dai Corona MD Specimen: Skin, right volar forearm 1:[address] [facility] DERMATOPATHOLOGY LABORATORY Final Diagnosis Specimen A. 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 DERMATOPATHOLOGY LABORATORY Clinical History BCCA vs SCCA Path#[id number] 1:[address] [facility] DERMATOPATHOLOGY LABORATORY Gross Description Specimen A: Received is one formalin filled container labeled with the patient's name and designated right volar forearm. The specimen consists of a shave biopsy measuring 9x6x1 mm. Jar 0. 1:[address] [facility] DERMATOPATHOLOGY LABORATORY Microscopic Description Specimen A. SKIN, right volar forearm: The epidermis shows parakeratosis, full thickness disorderly maturation of keratinocytes, mitoses at different levels, and dyskeratotic cells. 1:[address] [facility] DERMATOPATHOLOGY LABORATORY Disclaimer An external and internal positive and negative controls are appropriate for the histochemical, immunohistochemical and immunofluorescence stain(s) in this case (if any), except where stated explicitly. The performance characteristics of the stain(s) cited in this report were developed and its performance characteristic determined by the Dermatopathology Laboratory at [facility], directed by Dr. Demetrio Cee. These tests need not be, and therefore are not, approved by the [place] Food and Drug Administration. The tests are used for clinical purposes. Billing Codes Specimen Charges Stain Charges 88326 1 3 1:[address] [facility] DERMATOPATHOLOGY LABORATORY Embedded Images 3 1:[address] [facility] DERMATOPATHOLOGY LABORATORY Pathology/Cytolog y TISSUE SPECIMEN FROM SKIN / Unknown 09/22/2022 09/22/2022 4:[address] [facility] Jarrell Burrell MD LAB - PATHOLOGY/CYTO LOGY ORDERABLES DERMATOPATHOLOGY LABORATORY [facility] - Department of Dermatology [address] [phone] documented in this encounter Visit Diagnoses Not on filedocumented in this encounter Care Teams Automotive Accessory Installer Relationship Specialty Start Date End Date Lam Hunt MD PCP - General 11/30/21 documented as of this encounter
--- OUTSIDE RECORDS SUMMARY | 2024-09-24 00:24 | XMS_ITS | Patient Health Record ---
Author Organization [facility] Address [address] [place] [address] MAXINE Franks [address] Care Team Providers Care Cardiac Cath Lab Manager Name Role Phone ERNST LAMBERT MD Primary Care Provider Unavaila Selwyn Mercer Unavailable [phone] HAVEN MEDINA CHARLES Unavailable Unavailable ALLERGIES Allergen (clinical drug ingredient) Drug/Non Drug Allergy documented on EMR Reaction Allergy Type Onset Date Status amoxicillin / clavulanate Augmentin Unknown Drug Allergy Active ciprofloxacin Cipro hives Drug Allergy Act carolyn codeine Codeine Unknown Drug Allergy Active doxycycline Doxycycline rash Drug Allergy Act carolyn prednisone Prednisone diarrhea, anxiety Drug Allergy Active REASON FOR REFERRAL No Information MEDICATIONS Medication SIG (Take, Route, Frequency, Duration) Notes Start Date End Date Status Gabapentin 300 MG 1 capsule Orally Onc e a day for 30 day(s) 07/29/2022 Active Prevacid 30 MG 1 capsule Orally Onc e a day Active Atorvastatin Calcium 10 MG 1 tablet Oral ly Once a day for 30 day(s) Active Finasteride 5 MG Oral for 90 A ctive Metamucil - 1 packet with 8 ounc es of liquid as needed Orally Once a day for 30 day(s) Active Aspir-81 Active HYDROcodone-Acetaminophen 5-325 MG 1 tablet as needed Orally up to 1 x day for severe pain for 7 days 08/02/2022 Active SOCIAL HISTORY Tobacco Use: Social History Observation Description Date Details (start date - stop date) Never Smoker NA - NA Sex Assigned At : Social History Observation Description Sex Assigned At Unknown Tobacco Use/Smoking Question Answer Notes Are you a nonsmoker Alcohol Screen (Audit-C) Question Answer Notes Did you have a drink contain ing alcohol in the past year? Yes How often did you have a dri nk containing alcohol in the past year? 2 to 3 times a week (3 points) How many drinks did you have on a typical day when you were drinking in the past year? 1 or 2 drinks (0 point) How often did you have 6 or more drinks on one occasion in the past year? Never (0 point) Points 3 Interpretation Negative PROBLEMS Problem Type ICD Code Onset Dates Problem Status W/U Status Risk SNOMED Code Notes Problem Spondylosis without myelopathy or radiculopathy, cervical region (M47.812) Active confirmed Cervical spondylosis without myelopathy (914535131) Problem Spondylosis without myelopathy or radiculopathy, lumbar region (M47.816) Active confirmed Lumbosacral spondylosis without myelopathy (74926230) Problem Spinal stenosis, cervical region (M48.02) Active confirmed Spinal stenosis in cervical region (61576337) Problem Intervertebral disc disorders with radiculopathy, lumbosacral region (M51.17) Active confirmed Lumbosacral radiculopathy (4565069) Problem Other intervertebral disc degeneration, lumbar region (M51.36) Active confirmed Degeneration of lumbar intervertebral disc (91876772) Problem Radiculopathy, cervical region (M54.12) Active confirmed Cervical radiculopathy (05039796) Problem Radiculopathy, lumbar region (M54.16) Active confirmed Lumbar radiculopathy (386581106) Problem Radiculopathy, lumbosacral region (M54.17) Active confirmed Lumbosacral radiculopathy (8426898) Problem Osseous stenosis of neural canal of lumbar region (M99.33) Active confirmed Spinal stenosis of lumbar region (82896805) Problem intermediate frame tender (current) use of anticoagulants (Z79.01) Active confirmed Long-term curre nt use of anticoagulant (141637643) Problem Spinal stenosis, lumbar region with neurogenic claudication (M48.062) Active confirmed Neurogenic claudication (655869027) PLAN OF TREATMENT No Information Insurance Providers Payer Name Payer Address Payer Phone Subscriber Number Group Number Insured Name Patient Relationship to Insured Coverage Start Date Coverage End Date [place] [address] [address] [place] [address] [id number] DANIEL CIFUENTES Self - patient is the insured 3 [facility] [address] [place] [address] [id number] ESAUDANIEL DOMINGUEZ Self - patient is the insured 8 MEDICAL (GENERAL) HISTORY Medical History History ICD Code GERD Benign Prostatic Hypertrophy Skin cancer Bladder cancer Hypertension IBS Surgical History Surgery Date(Month/Year) Cholecystectomy Tonsillectomy Cryoablation 2021
--- OUTSIDE RECORDS SUMMARY | 2024-09-24 00:24 | XMS_ITS | Encounter Summary ---
Author Organization [facility] Address [address] [place] [address] Care Team Providers Care Lead Accountant Name Role Phone Lam Hunt MD Primary Care Provider [phone] Encounter Details Date Type Department Care Team (Late st Contact Info) Description 03/07/2023 Lab Requisition [facility] - DermPath Lab [address] [place] [id number] Jarrell Burrell MD [address] [place] [address] Social History Tobacco Use Types Packs/Day Years Used Date Smoking Tobacco: Former Sex and Gender Information Value Date Recorded Sex Assigned at Not on file Gender Identity Not on file Sexual Orientation Not on file documented as of this encounter Plan of Treatment Not on file documented as of this encounter Procedures Procedure Name Priority Date/Time Associated Diagnosis Comments DERMATOPATHOLOGY Routine 03/06/2023 3:33 AM CDT documented in this encounter Results * DERMATOPATHOLOGY (03/06/2023 3:33 AM CDT) Case Report Dermatopathology Report Case: [id number] Authorizing Provider: Jarrell Burrell MD Collected: 03/06/2023 03:33 AM Ordering Location: [facility] DermPath Lab Received: 03/08/2023 06:20 AM Pathologist: Myles Cee MD Specimen: Skin, right scaphoid fossaa 3 2:34 PM CDT DERMATOPATHOLOGY LABORATORY Final Diagnosis Specimen A. SKIN, : BASAL CELL CARCINOMA, INFILTRATIVE PATTERN (C44.612) DERMAL FIBROSIS (L90.5) 3 2:34 PM CDT DERMATOPATHOLOGY LABORATORY Clinical History [facility] Path # [id number] 3 2:34 PM CDT DERMATOPATHOLOGY LABORATORY Gross [...] characteristic determined by the Dermatopathology Laboratory at [facility], directed by Dr. Demetrio Cee. These tests need not be, and therefore are not, approved by the [place] Food and Drug Administration. The tests are used for clinical purposes. Billing Codes Specimen Charges Stain Charges 27387 1 3 2:34 PM CDT DERMATOPATHOLOGY LABORATORY Embedded Images 3 2:34 PM CDT DERMATOPATHOLOGY LABORATORY Pathology/Cytolo gy TISSUE SPECIMEN FROM SKIN / Unknown 03/06/2023 3:33 AM CDT 03/08/2023 6:20 AM CDT Jarrell Burrell MD LAB - PATHOLOGY/CYTO LOGY ORDERABLES DERMATOPATHOLOGY LABORATORY [facility] - Department of Dermatology [address] [phone] documented in this encounter Visit Diagnoses Not on filedocumented in this encounter Care Teams Lead Accountant Relationship Specialty Start Date End Date Lam Hunt MD PCP - General 11/30/21 documented as of this encounter
--- OUTSIDE RECORDS SUMMARY | 2024-09-24 00:24 | XMS_ITS | Data Portability ---
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 [email or web address] Not available 04/14/2024 16:39:54 07/17/2024 07/17/2024 even though he has improved this is a recurrent theme he has seen GI in the past with no definitive diagnosis as stated this ongoing GI issue I need a little bit further help and we will get nutrition consultant's opinion see me in 3 months [email or web address] Not available 08/11/2024 12:25:38 08/14/2024 08/14/2024 Screenings and assessment has been discussed and ordered were appropriate and patient agreeable [email or web address] Not available 08/18/2024 15:47:08 08/23/2024 08/23/2024 we will check urinalysis with reflex culture start Macrobid empirically as it is Monday and I will not have any results for 48 hours maybe 72 and he will push fluids [email or web address] Not available 08/24/2024 16:54:45 Plan of Treatment Reminders Order Date Submit Date Provider Last Modified By Organization Details Last Modified Time Details Appointments ANY 15 2024 11:00A Myles Hunt MD Not available Not available Not available Lab urinalysi s complete, reflex culture 2024 025 [facility], [address], [place], [address], 08/28/2024 14:04:20 urinalysi s complete, reflex culture 2023 024 [facility], [address], [place], [address], 07/10/2024 15:26:32 PSA, total, serum or plasma 2023 024 [facility], [address], [place], [address], 04/11/2024 08:32:34 CMP, serum or plasma 2023 024 [facility], [address], [place], [address], 04/11/2024 08:32:32 CMP, serum or plasma 2023 024 [email or web address] [facility], [address], [place], [address], 06/30/2024 16:09:05 lipid panel, serum 2023 024 [facility], [address], [place], [address], 04/11/2024 08:32:33 Referral gastroent erologist referral 2023 024 [facility], [address], [id number], [place], [address], 07/20/2024 18:17:19 Procedures None recorded. Surgeries None recorded. Imaging electroca rdiogram 2023 024 [email or web address] In-Office Order, Internal Use Only DO Not Attach Compendium DO Not Attach Compendium, Do Not Delete/merge, [id number] 07/08/2024 14:55:00 Medication Orders Macrobid 100 mg capsule 2024 025 [email or web address] [id number] [facility], [address] [place], [address], 08/23/2024 12:59:33 Patient TargetsNo targets recorded. 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 Referring Physician: Ernst Hunt, Internal Medicine, Encounter Date: 07/17/2024 Results Created Date Observation Date Name Description Value Unit Range Abnormal Flag Note LastModifiedBy Organization Detail LastModifiedTime 04/10/2004/11/2024 CMP14 glucose 104 mg/dL 70-99 above high normal Not Available [facility] ([facility]) [address] [place], [address], 04/11/2024 08:32:32 04/10/20 24 04/11/2024 CMP14 BUN 18 mg/dL 8-27 Not Available [facility] ([facility]) [address] [place], [address], 04/11/2024 08:32:32 04/10/20 24 04/11/2024 CMP14 creatinine 0.87 mg/dL 0.76-1 .27 Not Available [facility] ([facility]) [address] [place], [address], 04/11/2024 08:32:32 04/10/20 24 04/11/2024 CMP14 eGFR 87 mL/mi n/1.7 3 >59 Not Available [facility] ([facility]) [address] [place], [address], 04/11/2024 08:32:32 04/10/20 24 04/11/2024 CMP14 BUN/creatini ne ratio 21 10-24 Not Available [facility]) [address], [place], [address], 04/11/2024 08:32:32 04/10/20 24 04/11/2024 CMP14 sodium 140 mmol/ L 134-14 4 Not Available [facility] ([facility]) [address] [place], [address], 04/11/2024 08:32:32 04/10/20 24 04/11/2024 CMP14 potassium 4.9 mmol/ L 3.5-5. 2 Not Available [facility] ([facility]) [address] [place], [address], 04/11/2024 08:32:32 04/10/20 24 04/11/2024 CMP14 chloride 102 mmol/ L 96-106 Not Available [facility] ([facility]) [address] [place], [address], 04/11/2024 08:32:32 04/10/20 24 04/11/2024 CMP14 carbon dioxide, total 25 mmol/ L 20-29 Not Available [facility] ([facility]) [address] [facility] [place], [address], 04/11/2024 08:32:32 04/10/20 24 04/11/2024 CMP14 calcium 9.0 mg/dL 8.6-10 .2 Not Available [facility] ([facility]) [address] [facility] [place], [address], 04/11/2024 08:32:32 04/10/20 24 04/11/2024 CMP14 protein, total 6.7 g/dL 6.0-8. 5 Not Available [facility] ([facility]) [address] [facility], [place], [address], 04/11/2024 08:32:32 04/10/20 24 04/11/2024 CMP14 albumin 4.2 g/dL 3.8-4. 8 Not Available [facility] ([facility]) [address] [facility], [place], [address], 04/11/2024 08:32:32 04/10/20 24 04/11/2024 CMP14 globulin, total 2.5 g/dL 1.5-4. 5 Not Available [facility] ([facility]) [address] [facility], [place], [address], 04/11/2024 08:32:32 04/10/20 24 04/11/2024 CMP14 bilirubin, total 0.4 mg/dL 0.0-1. 2 Not Available [facility] ([facility]) [address] [facility], [place], [address], 04/11/2024 08:32:32 04/10/20 24 04/11/2024 CMP14 alkaline phosphatase 73 IU/L 44-121 Not Available [facility] [address] [facility], [place], [address], 04/11/2024 08:32:32 04/10/20 24 04/11/2024 CMP14 AST (SGOT) 26 IU/L 0-40 Not Avail able [facility] ([facility]) [address] [facility] [place], [address], 04/11/2024 08:32:32 04/10/20 24 04/11/2024 CMP14 ALT (SGPT) 18 IU/L 0-44 Not Avail able [facility] ([facility]) [address] [facility] [place], [address], 04/11/2024 08:32:32 04/10/20 24 04/11/2024 LIPID PANEL cholesterol, total 160 mg/dL 100-19 9 Not Available [facility] ([facility]) [address] [facility], [place], [address], 04/11/2024 08:32:33 04/10/20 24 04/11/2024 LIPID PANEL triglyceride s 41 mg/dL 0-149 Not Available [facility] ([facility] [address] [facility], [place], [address], 04/11/2024 08:32:33 04/10/20 24 04/11/2024 LIPID PANEL HDL cholesterol 89 mg/dL >39 Not Available [facility] ([facility] [address] [facility], [place], [address], 04/11/2024 08:32:33 04/10/20 24 04/11/2024 LIPID PANEL VLDL cholesterol catherine 9 mg/dL 5-40 Not Available [facility] ([facility]) [address] [facility], [place], [address], 04/11/2024 08:32:33 04/10/20 24 04/11/2024 LIPID PANEL LDL chol calc ([facility]) 62 mg/dL 0-99 Not Available [facility] [address] [facility], [place], [address], 04/11/2024 08:32:33 04/10/2004/11/2024 PROST ATE-S PECIF IC AG prostate specific Ag <0.1 Gerri ECLIA metho dolog y. Accor ding to the Ameri can [employer]o g[employer] Ass[employer] iatio n, Serum PSA shoul d decre ase and remai n at undet ectab le level s after radic al prost atect kim. The AUA defin es bioch emica l recur rence as an initi al PSA value 0.2 ng/mL or great er follo wed by a subse quent confi rmato ry PSA value 0.2 ng/mL or great er. Value s obtai laine with diffe rent assay metho ds or kits canno t be used inter caceres eably . Resul ts canno t be inter prete d as absol la jolla evide nce of the prese nce or absen ce of [facility] [place] se. Not Available [facility] ([facility]) [address] [facility], [place], [address], 04/11/2024 08:32:34 07/08/20 24 07/09/2024 MICRO SCOPI C EXAMI NATIO N WBC 11-30 /hpf 0-5 abnormal Not Available [facility] ([facility]) [address] [facility], [place], [address], 07/11/2024 19:06:34 07/08/20 24 07/09/2024 MICRO SCOPI C EXAMI NATIO N RBC 0-2 /hpf 0-2 Not Available [facility] ([facility]) [address] [facility], [place], [address], 07/11/2024 19:06:34 07/08/20 24 07/09/2024 MICRO SCOPI C EXAMI NATIO N epithelial cells (non renal) 0-10 /hpf 0-10 Not Available [facility] ([facility]) [address] [facility], [place], [address], 07/11/2024 19:06:34 07/08/20 24 07/09/2024 MICRO SCOPI C EXAMI NATIO N casts None seen /lpf nonese en Not Available [facility] ([facility]) [address] [facility], [place], [address], 07/11/2024 19:06:34 07/08/20 24 07/09/2024 MICRO SCOPI C EXAMI NATIO N bacteria None seen nonese en/few Not Available [facility] ([facility]) [address] [facility], [place], [address], 07/11/2024 19:06:34 07/08/20 24 07/09/2024 UA/M W/RFL X CULTU RE, ROUTI NE specific gravity 1.023 1.005- 1.030 Not Available [facility] ([facility]) [address] [facility], [place], [address], 07/11/2024 19:06:35 07/08/20 24 07/09/2024 UA/M W/RFL X CULTU REJAMES NE pH 5.5 5.0-7. 5 Not Available [facility] ([facility]) [address] [facility], [place], [address], 07/11/2024 19:06:35 07/08/20 24 07/09/2024 UA/M W/RFL X CULTU RE, ROUTI NE urine-color Yellow yellow Not Available [facility] ([facility]) [address] [facility], [place], [address], 07/11/2024 19:06:35 07/08/20 24 07/09/2024 UA/M W/RFL X CULTU RE ROUTI NE appearance Clear clear Not Available [facility] ([facility]) [address] [place], [address], 07/11/2024 19:06:35 07/08/20 24 07/09/2024 UA/M W/RFL X CULTU RE, ROUTI NE WBC esterase 2+ negati ve abnormal Not Available [facility] ([facility]) [address] [place], [address], 07/11/2024 19:06:35 07/08/20 24 07/09/2024 UA/M W/RFL X CULTU RE ROUTI NE protein Trace negati ve/tra ce Not Available [facility] ([facility]) [address] [place], [address], 07/11/2024 19:06:35 07/08/20 24 07/09/2024 UA/M W/RFL X CULTU RE ROUTI NE glucose Negati ve negati ve Not Available [facility] ([facility]) [address] [place], [address], 07/11/2024 19:06:35 07/08/20 24 07/09/2024 UA/M W/RFL X CULTU RE, ROUTI NE ketones 1+ negati ve abnormal Not Available [facility] ([facility]) [address] [facility], [place], [address], 07/11/2024 19:06:35 07/08/20 24 07/09/2024 UA/M W/RFL X CULTU RE, ROUTI NE occult blood Negati ve negati ve Not Available [facility] ([facility]) [address] [place], [address], 07/11/2024 19:06:35 07/08/20 24 07/09/2024 UA/M W/RFL X CULTU RE, ROUTI NE bilirubin Negati ve negati ve Not Available [facility] ([facility]) [address] [facility], [place], [address], 07/11/2024 19:06:35 07/08/20 24 07/09/2024 UA/M W/RFL X CULTU RE, ROUTI NE urobilinogen ,semi-qn 0.2 mg/dL 0.2-1. 0 Not Available [facility] ([facility]) [address] [place], [address], 07/11/2024 19:06:35 07/08/20 24 07/09/2024 UA/M W/RFL X CULTU RE, ROUTI NE nitrite, urine Negati ve negati ve Not Available [facility] ([facility]) [address] [place], [address], 07/11/2024 19:06:35 07/08/20 24 07/09/2024 UA/M W/RFL X CULTU RE, ROUTI NE microscopic examination See below: Micro scopi c was indic ated and was perfo rmed. Not Available [facility] ([facility]) [address] [facility], [place], [address], 07/11/2024 19:06:35 07/08/20 24 07/09/2024 UA/M W/RFL X CULTU RE, ROUTI NE urinalysis reflex Commen t This speci men has refle xed to a Urine Cultu re. Not Available [facility] ([facility]) [address] [facility], [place], [address], 07/11/2024 19:06:35 07/08/20 24 07/11/2024 URINE CULTU RE, ROUTI NE urine culture, routine Final report abnormal Not Available [facility] ([facility]) [address] [facility], [place], [address], 07/11/2024 19:06:35 07/08/20 24 07/11/2024 URINE CULTU RE, ROUTI NE result 1 Entero coccus faecal is abnormal For Enter ococc us speci es, amino glyco sides (exce pt for high- level resis tance scree ayleen) , cepha lospo rins, clind amyci n, and trime thopr im-douglas lfame thoxa zole are not effec tive clini kana . (CLSI , M100- S26, 2016) Note: this isola te is vanco mycin -susc eptib le. This infor matio n is provi ded for epide miolo gic purpo ses only: vanco mycin is not among the antib iotic s recom scottie d for thera py of urina ry tract infec tions cause d by Enter ococc us. 25,00 0-50, 000 colon y formi ng units per mL Not Available [facility] ([facility]) [address] [facility], [place], [address], 07/11/2024 19:06:35 07/08/20 24 07/11/2024 URINE CULTU RE, ROUTI NE antimicrobia l susceptibili ty Commen t S = Susce ptibl e; I = Inter media te; R = Resis tant P = Posit carolyn; N = Negat carolyn MICS are expre ssed in micro grams per mL Antib iotic RSLT# 1 RSLT# 2 RSLT# 3 RSLT# 4 Cipro floxa gee S Levof loxac in S Nitro furan toin S Penic illin S Tetra cycli ne R Vanco mycin S Not Available [facility] ([facility]) [address] [facility], [place], [address], 07/11/2024 19:06:35 07/22/20 24 07/23/2024 MICRO SCOPI C EXAMI NATIO N WBC None seen /hpf 0-5 Not Available [facility] ([facility]) [address] [place], [address], 07/23/2024 07:07:19 07/22/20 24 07/23/2024 MICRO SCOPI C EXAMI NATIO N RBC 0-2 /hpf 0-2 Not Available [facility] ([facility]) [address] [facility], [place], [address], 07/23/2024 07:07:19 07/22/20 24 07/23/2024 MICRO SCOPI C EXAMI NATIO N epithelial cells (non renal) None seen /hpf 0-10 Not Available [facility] ([facility]) [address] [place], [address], 07/23/2024 07:07:19 07/22/20 24 07/23/2024 MICRO SCOPI C EXAMI NATIO N casts None seen /lpf nonese en Not Available [facility] ([facility]) [address] [place], [address], 07/23/2024 07:07:19 07/22/20 24 07/23/2024 MICRO SCOPI C EXAMI NATIO N bacteria None seen nonese en/few Not Available [facility] ([facility]) [address] [place], [address], 07/23/2024 07:07:19 07/22/2007/23/2024 URINA LYSIS , COMPL ETE specific gravity 1.016 1.005- 1.030 Not Available [facility] ([facility]) [address] [facility] [place], [address], 07/23/2024 07:07:20 07/22/20 24 07/23/2024 URINA LYSIS , COMPL ETE pH 6.5 5.0-7. 5 Not Available [facility] ([facility]) [address] [facility], [place], [address], 07/23/2024 07:07:20 07/22/2007/23/2024 URINA LYSIS , COMPL ETE urine-color YELLOW yellow Not Available [facility] ([facility]) [address] [facility], [place], [address], 07/23/2024 07:07:20 07/22/2007/23/2024 URINA LYSIS , COMPL ETE appearance CLEAR clear Not Available [facility] ([facility]) [address] [place], [address], 07/23/2024 07:07:20 07/22/20 24 07/23/2024 URINA LYSIS , COMPL ETE WBC esterase NEGATI VE negati ve Not Available [facility] ([facility]) [address] [place], [address], 07/23/2024 07:07:20 07/22/2007/23/2024 URINA LYSIS , COMPL ETE protein NEGATI VE negati ve/tra ce Not Available [facility] ([facility]) [address] [place], [address], 07/23/2024 07:07:20 07/22/2007/23/2024 URINA LYSIS , COMPL ETE glucose NEGATI VE negati ve Not Available [facility] ([facility]) [address] [place], [address], 07/23/2024 07:07:20 07/22/20 24 07/23/2024 URINA LYSIS , COMPL ETE ketones NEGATI VE negati ve Not Available [facility] ([facility]) [address] [place], [address], 07/23/2024 07:07:20 07/22/20 24 07/23/2024 URINA LYSIS , COMPL ETE occult blood NEGATI VE negati ve Not Available [facility] ([facility]) [address] [place], [address], 07/23/2024 07:07:20 07/22/2007/23/2024 URINA LYSIS , COMPL ETE bilirubin NEGATI VE negati ve Not Available [facility] ([facility]) [address] [place], [address], 07/23/2024 07:07:20 07/22/20 24 07/23/2024 URINA LYSIS , COMPL ETE urobilinogen ,semi-qn 0.2 mg/dL 0.2-1. 0 Not Available [facility] ([facility]) [address] [place], [address], 07/23/2024 07:07:20 07/22/20 24 07/23/2024 URINA LYSIS , COMPL ETE nitrite, urine NEGATI VE negati ve Not Available [facility] ([facility]) [address] [place], [address], 07/23/2024 07:07:20 07/22/20 24 07/23/2024 URINA LYSIS , COMPL ETE microscopic examination COMMEN T Micro scopi c follo ws if indic ated. Not Available [facility] ([facility]) [address] [place], [address], 07/23/2024 07:07:20 07/22/20 24 07/23/2024 URINA LYSIS , COMPL ETE microscopic examination SEE BELOW: Micro scopi c was indic ated and was perfo rmed. Not Available [facility] ([facility]) [address] [facility], [place], [address], 07/23/2024 07:07:20 08/23/19 25 08/24/2024 MICRO SCOPI C EXAMI NATIO N WBC 0-5 /hpf 0-5 Not Available [facility] ([facility]) [address] [facility], [place], [address], 08/29/2024 19:08:48 08/23/19 25 08/24/2024 MICRO SCOPI C EXAMI NATIO N RBC None seen /hpf 0-2 Not Available [facility] ([facility]) [address] [facility], [place], [address], 08/29/2024 19:08:48 08/23/19 25 08/24/2024 MICRO SCOPI C EXAMI NATIO N epithelial cells (non renal) None seen /hpf 0-10 Not Available [facility] ([facility]) [address] [facility], [place], [address], 08/29/2024 19:08:48 08/23/19 25 08/24/2024 MICRO SCOPI C EXAMI NATIO N casts None seen /lpf nonese en Not Available [facility] ([facility]) [address] [facility], [place], [address], 08/29/2024 19:08:48 08/23/1908/24/2024 MICRO SCOPI C EXAMI NATIO N bacteria None seen nonese en/few Not Available [facility] ([facility]) [address] [place], [address], 08/29/2024 19:08:48 08/23/19 25 08/24/2024 UA/M W/RFL X CULTU RE, ROUTI NE specific gravity 1.006 1.005- 1.030 Not Available [facility] ([facility]) [address] [place], [address], 08/29/2024 19:08:49 08/23/1908/24/2024 UA/M W/RFL X CULTU REJAMES NE pH 7.0 5.0-7. 5 Not Available [facility] ([facility]) [address] [facility], [place], [address], 08/29/2024 19:08:49 08/23/1908/24/2024 UA/M W/RFL X CULTU REJAMES NE urine-color Yellow yellow Not Available [facility] [address] [facility], [place], [address], 08/29/2024 19:08:49 08/23/1908/24/2024 UA/M W/RFL X CULTU REJAMES NE appearance Clear clear Not Available [facility] ([facility]) [address] [facility], [place], [address], 08/29/2024 19:08:49 08/23/1908/24/2024 UA/M W/RFL X CULTU REJAMES NE WBC esterase Trace negati ve abnormal Not Available [facility] ([facility]) [address] [facility], [place], [address], 08/29/2024 19:08:49 08/23/1908/24/2024 UA/M W/RFL X CULTBernardo REJAMES NE protein Negati ve negati ve/tra ce Not Available [facility] ([facility]) [address] [facility], [place], [address], 08/29/2024 19:08:49 08/23/1908/24/2024 UA/M W/RFL X CULTU RE ROUTMarilin NE glucose Negati ve negati ve Not Available [facility] ([facility]) [address] [place], [address], 08/29/2024 19:08:49 08/23/19 25 08/24/2024 UA/M W/RFL X CULTU RE, ROUTI NE ketones Negati ve negati ve Not Available [facility] ([facility]) [address] [place], [address], 08/29/2024 19:08:49 08/23/19 25 08/24/2024 UA/M W/RFL X CULTU RE, ROUTI NE occult blood Negati ve negati ve Not Available [facility] ([facility]) [address] [place], [address], 08/29/2024 19:08:49 08/23/1908/24/2024 UA/M W/RFL X CULTU RE, ROUTI NE bilirubin Negati ve negati ve Not Available [facility] ([facility]) [address] [place], [address], 08/29/2024 19:08:49 08/23/19 25 08/24/2024 UA/M W/RFL X CULTU RE, ROUTI NE urobilinogen ,semi-qn 0.2 mg/dL 0.2-1. 0 Not Available [facility] ([facility]) [address] [place], [address], 08/29/2024 19:08:49 08/23/1908/24/2024 UA/M W/RFL X CULTU RE, ROUTI NE nitrite, urine Negati ve negati ve Not Available [facility] ([facility]) [address] [place], [address], 08/29/2024 19:08:49 08/23/1908/24/2024 UA/M W/RFL X CULTU RE, ROUTI NE microscopic examination See below: Micro scopi c was indic ated and was perfo rmed. Not Available [facility] ([facility]) [address] [place], [address], 08/29/2024 19:08:49 08/23/19 25 08/24/2024 UA/M W/RFL X CULTU RE, ROUTI NE urinalysis reflex Commen t This speci men has refle xed to a Urine Cultu re. Not Available [facility] ([facility]) [address] [facility], [place], [address], 08/29/2024 19:08:49 08/23/19 25 08/29/2024 URINE CULTU RE, ROUTI NE urine culture, routine Final report abnormal Not Available [facility] ([facility]) [address] [facility], [place], [address], 08/29/2024 19:08:50 08/23/19 25 08/29/2024 URINE CULTU RE, ROUTI NE result 1 Entero coccus faecal is abnormal For Enter ococc us speci es, amino glyco sides (exce pt for high- level resis tance scree ayleen) , cepha lospo rins, clind amyci n, and trime thopr im-douglas lfame thoxa zole are not effec tive clini kana . (CLSI , M100- S26, 2016) Enter ococc i susce ptibl e to penic illin are predi ctabl y susce ptibl e to ampic illin , amoxi cilli n, ampic illin -sulb actam , amoxi cilli n-cla vulan ate, and piper acill in-ta zobac mccoy for non-b eta-l actam ase produ cing enter ococc i. (CLSI 2018) Note: this isola te is vanco mycin -susc eptib le. This infor matio n is provi ded for epide miolo gic purpo ses only: vanco mycin is not among the antib iotic s recom scottie d for thera py of urina ry tract infec tions cause d by Enter ococc us. Great er than 100,0 00 colon y formi ng units per mL Not Available [facility] ([facility]) [address] [facility], [place], [address], 08/29/2024 19:08:50 08/23/19 25 08/29/2024 URINE CULTU RE, ROUTI NE antimicrobia l susceptibili ty Commen t S = Susce ptibl e; I = Inter media te; R = Resis tant P = Posit carolyn; N = Negat carolyn MICS are expre ssed in micro grams per mL Antib iotic RSLT# 1 RSLT# 2 RSLT# 3 RSLT# 4 Cipro floxa gee S Levof loxac in S Linez olid S Nitro furan toin S Penic illin S Tetra cycli ne R Vanco mycin S Not Available [facility] ([facility]) [address] [facility], [place], [address], 08/29/2024 19:08:50 05/28/20 24 05/28/2024 XR, lumba r spine No observ ation record ed. [facility] [address] [place], [address], 05/28/2024 17:46:24 05/28/20 24 05/28/2024 XR, hip, unila teral , 2 or 3 view No observ ation record ed. [facility] [address] [place], [address], 05/28/2024 17:46:25 06/30/20 24 06/30/2024 XR, chest No observ ation record ed. [facility] [address] [place], [address], 07/01/2024 09:45:49 06/30/20 24 06/30/2024 CT, angio gram, chest , w/ contr ast No observ ation record ed. [facility] [address] [place], [address], 07/01/2024 09:45:31 06/30/20 24 06/30/2024 CT, abdom en + pelvi s, w/ contr ast No observ ation record ed. [facility] [address], [place], [address], 07/01/2024 09:44:32 07/08/20 elect milton marshallgr am No observ ation record ed. PRICILLA In-Office Order Internal Use Only DO Not Attach Compendium DO Not Attach Compendium, Do Not Delete/merge, [id number] 07/08/2024 12:48:04 07/08/20 24 07/08/2024 johana rose diogr am No observ ation record ed. PRICILLA In-Office Order Internal Use Only DO Not Attach Compendium DO Not Attach Compendium, Do Not Delete/merge, [id number] 07/08/2024 12:55:26 Result Notes None recorded. Problems Name Problem SNOMED Code Status Onset Date Resolution Date Notes Provider Name and Address Organization Details Recorded Time Gastroesophage al reflux disease without esophagitis 725181734 Active 2023 Ernst Hunt MD Attn: Anjana ochoa,[address] [place], [address], [facility] - [facility] 4 14:55:20 Malignant neoplasm of urinary bladder 044217162 Active 2023 Ernst Hunt MD Attn: Anjana ochoa,[address] [place], [address], [facility] - [facility] 4 14:55:21 Chronic anemia 073424203 Active 2023 Ernst Hunt MD Attn: Anjana ochoa,[address] [place], [address], [facility] - [facility] 4 14:55:22 Hyperlipidemia 86339700 Active 2023 Ernst Hunt MD Attn: Anjana ochoa,[address] [place], [address], [facility] - [facility] 4 14:55:23 Right flank pain 747045466 Active 2024 Giuseppe Escoto MA [facility], [facility] 5 12:46:52 Problem Notes None recorded. Procedures Surgical History Date Name Laterality Status Provider Name and Address Organization Details Recorded Time Tonsillectomy completed Merlene Cruz [place] - [facility] 10/11/2023 16:52:37 Cholecystectomy completed Merlene Cruz [place] - [facility] 10/11/2023 16:52:45 Imaging Results Imaging Date Name Status LastModified by Organization Details LastModified Time 05/28/2024 XR, lumbar spine completed [facility] [address] [place], [address], 05/28/2024 17:46:24 05/28/2024 XR, hip, unilateral, 2 or 3 view completed [facility] [address] [place], [address], 05/28/2024 17:46:25 06/30/2024 XR, chest completed [facility] [address] [place], [address], 07/01/2024 09:45:49 06/30/2024 CT, angiogram, chest, w/ contrast completed [facility] [address] [place], [address], 07/01/2024 09:45:31 06/30/2024 CT, abdomen + pelvis, w/ contrast completed [facility] [address] [place], [address], 07/01/2024 09:44:32 07/08/2024 electrocardiogram completed [facility] Order Internal Use Only DO Not Attach Compendium DO Not Attach Compendium, Do Not Delete/merge, [id number] 07/08/2024 12:48:04 07/08/2024 electrocardiogram completed [facility] Order Internal Use Only DO Not Attach Compendium DO Not Attach Compendium, Do Not Delete/merge, [id number] 07/08/2024 12:55:26 Procedure Notes None recorded. Medical Equipment None Reported. Allergies Allergen ID Allergen Name Allergen Category Reaction Reaction Severity Criticality Documentation Date Start Date Code Code System Note Provider Name and Address Organization Details Recorded Time 487488 ciproflox acin medicatio n other Not available Not available 10/11/2023 2551 RxNorm joint pain Not Available Not Available Not Available 335139 doxycycli ne Not available other Not available Not available 10/11/2023 3640 RxNorm acid reflu x Not Available Not Available Not Available Medications Name Sig Start Date Stop Date Status Note LastModified by Organization Details LastModified Time amoxicillin 500 mg capsule TAKE 1 CAPSULE BY MOUTH TWICE A DAY FOR 7 DAYS 04/10 completed Not Available Not Available Not Available atorvastati n 10 mg tablet TAKE 1 TABLET BY MOUTH EVERY DAY 2023 active Not Available Not Available Not Avai lable sucralfate 1 gram tablet TAKE 1 TABLET BY MOUTH THREE TIMES A DAY active Not Available Not Available No t Available metronidazo le 500 mg tablet TAKE 1 TABLET BY MOUTH THREE TIMES A DAY FOR 7 DAYS 10/10 completed Not Available Not Available Not Available aspirin 81 mg tablet,cyrus yed release Take 1 tablet every day by oral route. active Not Available Not Available No t Available tramadol 50 mg tablet TAKE 1 TABLET BY MOUTH EVERY 6 HOURS NEEDED FOR PAIN 10/10 completed Not Available Not Available Not Available amoxicillin 500 mg tablet TAKE 1 TABLET BY MOUTH THREE TIMES A DAY FOR 5 DAYS 10/10 completed Not Available Not Available Not Available famotidine 20 mg tablet TAKE 1 TABLET BY MOUTH EVERY DAY active Not Available Not Available No t Available prednisolon e acetate 1 % eye drops,suspe nsion INSTILL ONE DROP INTO RIGHT EYE THREE TIMES DAILY FOR 3 WEEKS 04/10 completed Not Available Not Available Not Available Vitamin C 1,000 mg tablet Take 1 tablet every day by oral route. active Not Available Not Available No t Available cephalexin 500 mg capsule TAKE 1 CAPSULE BY MOUTH EVERY 8 HOURS 10/16 completed Not Available Not Available Not Available pantoprazol e 40 mg tablet,cyrus yed release TAKE 1 TABLET BY MOUTH EVERY DAY IN THE MORNING active Not Available Not Available No t Available neomycin-po lymyxin-dex ameth 3.5 mg/mL-10,00 0 unit/mL-0.1 % eye drops INSTILL 1 DROP IN THE RIGHT EYE 4X A DAY 04/10 completed Not Available Not Available Not Available nitroglycer in 0.4 mg sublingual tablet PLEASE SEE ATTACHED FOR DETAILED DIRECTION S 10/10 completed Not Available Not Available Not Available mupirocin 2 % topical ointment APPLY TO UPPER CHEST TWICE A DAY FOR 10 DAYS 10/10 completed Not Available Not Available Not Available dicyclomine 10 mg capsule TAKE 1 CAPSULE BY MOUTH THREE TIMES A DAY NEEDED FOR STOMACH CRAMPING active Not Available Not Available No t Available finasteride 5 mg tablet TAKE 1 TABLET BY MOUTH EVERY DAY active Not Available Not Available No t Available amoxicillin 875 mg-potassiu m clavulanate 125 mg tablet TAKE 1 TABLET BY MOUTH TWICE A DAY FOR 7 DAYS 10/10 completed Not Available Not Available Not Available Vitamin D3 25 mcg (1,000 unit) capsule Take 1 capsule every day by oral route. active Not Available Not Available No t Available nitrofurant oin monohydrate /macrocryst als 100 mg capsule TAKE 1 CAPSULE BY MOUTH TWICE A DAY FOR 5 DAYS active Not Available Not Available No t Available vitamin E TAKE 1 25MG TABLET ONCE DAILY active Not Available Not Available No t Available [place] 3 TAKE 1,000MG DAILY active Not Available Not Available No t Available lutein TAKE 3,000MCG DAILY active Not Available Not Available No t Available lycopene TAKE 3,000MCG DAILY active Not Available Not Available No t Available Fiber Choice TAKE 2 TABLETS DAILY active Not Available Not Available No t Available Align (B.infantis ) TAKE 1 CAPSULE DAILY active Not Available Not Available No t Available Vitamin D 2,000 unit capsule Take 1 capsule every day by oral route. active Not Available Not Available No t Available B12 TAKE 250MCG DAILY active Not Available Not Available No t Available zeaxanthin (bulk) TAKE 1,500MCG DAILY active Not Available Not Available No t Available biotin 1,000 mcg chewable tablet Take 2 tablets every day by oral route. active Not Available Not Available No t Available Vitals Date Recorded Body height Body mass index (BMI) Body weight Heart rate Oxygen saturation Oxygen saturation in Arterial blood by Pulse oximetry Systolic blood pressure Diastolic blood pressure Provider Name and Address Organization Details Last Updated DateTime 4 182.88 cm 22.8 kg/m2 15377.5 2 g 66 /min 96 % 96 % 108 mm[Hg] 78 mm[Hg] [place] - [facility] 4 14:51:17 Date Recorded Body height Body mass index (BMI) Body weight Heart rate Oxygen saturation Oxygen saturation in Arterial blood by Pulse oximetry Systolic blood pressure Diastolic blood pressure Provider Name and Address Organization Details Last Updated DateTime 4 182.88 cm 22.9 kg/m2 30876.6 7 g 73 /min 97 % 97 % 118 mm[Hg] 72 mm[Hg] Elly Matias MA [facility] 4 11:36:38 Date Recorded Body height Body mass index (BMI) Body weight Heart rate Oxygen saturation Oxygen saturation in Arterial blood by Pulse oximetry Systolic blood pressure Diastolic blood pressure Provider Name and Address Organization Details Last Updated DateTime 4 182.88 cm 23.1 kg/m2 98676.7 g 70 /min 98 % 98 % 124 mm[Hg] 62 mm[Hg] Yissel Beck MA [facility] 4 15:03:01 Date Recorded Body height Body mass index (BMI) Body weight Heart rate Oxygen saturation Oxygen saturation in Arterial blood by Pulse oximetry Systolic blood pressure Diastolic blood pressure Provider Name and Address Organization Details Last Updated DateTime 5 182.88 cm 23.2 kg/m2 58326.9 4 g 70 /min 98 % 98 % 124 mm[Hg] 62 mm[Hg] Yissel Beck MA [facility] 5 11:32:41 Date Recorded Pain severity - 0-10 verbal numeric rating [Score] - Reported Provider Name and Address Organization Details Last Updated DateTime 08/14/2024 0 Cari Wolfe [facility] 08/14/2024 11:39:11 Date Recorded Body height Body mass index (BMI) Body weight Heart rate Oxygen saturation Oxygen saturation in Arterial blood by Pulse oximetry Systolic blood pressure Diastolic blood pressure Provider Name and Address Organization Details Last Updated DateTime 5 182.88 cm 22.8 kg/m2 19267.5 2 g 63 /min 96 % 96 % 120 mm[Hg] 68 mm[Hg] Elly Matias MA [facility] 5 12:00:28 Social History Question Answer Notes LastModified by Organizat ion Details LastModified Time Tobacco Smoking Status Former Smoker quit 21 years ago Cari Wolfe [facility] 08/14/2024 11:43:34 Do You Have An Advance Directive? Yes Information not available 01/10/2024 What Is Your Level Of Alcohol Consumption? None Information not available 10/11/2023 Are You Blind Or Do You Have Difficulty Seeing? No Information not available 10/11/2023 What Is Your Level Of Caffeine Consumption? Heavy 1 Coke And Couple Coffee Daily Information not available 08/14/2024 In The 14 Days Before Symptom Onset, Have You Had Close Contact With A Laboratory-confir med COVID-19 While That Case Was Ill? No Information not available 01/10/2024 In The 14 Days Before Symptom Onset, Have You Had Close Contact With A Person Who Is Under Investigation For COVID-19 While That Person Was Ill? No Information not available 01/10/2024 Have You Been To An Area Known To Be High Risk For COVID-19? No Information not available 01/10/2024 Are You Currently Employed? No Retired Information not available 08/14/2024 Are You Deaf Or Do You Have Serious Difficulty Hearing? No Information not available 10/11/2023 What Type Of Diet Are You Following? REGULAR Information not available 01/10/2024 What Is The Highest Grade Or Level Of School You Have Completed Or The Highest Degree You Have Received? [id number] Information not available 08/14/2024 Are There Any Guns Present In Your Home? Yes Information not available 08/14/2024 In The Past 7 Days, How Many Days Did You Exercise? 0 Information not available 08/14/2024 In The Past 7 Days, How Much Pain Have You Dimock? Some Information not available 08/14/2024 In General, Would You Say You Health Is: Very Good Information not available 08/14/2024 How Would You Describe The Condition Of Your Mouth And Teeth- Including False Teeth Or Dentures? Very Good Information not available 08/14/2024 Each Night, How Many Hours Of Sleep Do You Get? 9 Information no t available 08/14/2024 Has Anyone Ever Told You That You Snore? No Information not available 08/14/2024 In The Past 7 Days, How Often Have You Dimock Sleepy In The Daytime? Never Information not available 08/14/2024 # Alcohol Drinks Per Week 0 Information not available 08/14/2024 What Was The Date Of Your Most Recent Tobacco Screening? 08/23/2024 [email or web address] Information not available 08/23/2024 What Is Your Current Pack Years? 20-29packye ars Information not available 10/11/2023 What Is Your Relationship Status? Information not available 10/11/2023 Do You Use Your Seat Belt Or Car Seat Routinely? Yes Information not available 10/11/2023 Do You Have Smoke And Carbon Monoxide Detectors In Your Home? Yes Information not available 10/11/2023 How Much Tobacco Do You Smoke? 1 PPW Information not available 10/11/2023 Do You Feel Stressed (tense, Restless, Nervous, Or Anxious, Or Unable To Sleep At Night)? [id number] Information not available 10/11/2023 Do You Use Any Illicit Or Recreational Drugs? No Information not available 10/11/2023 Do You Use Sunscreen Routinely? Yes Information not available 08/14/2024 Has Tobacco Cessation Counseling Been Provided? No Information not available 07/17/2024 How Many Years Have You Smoked Tobacco? 45 Information not available 10/11/2023 Do You Or Have You Ever Used Any Other Forms Of Tobacco Or Nicotine? No Information not available 10/11/2023 Sex: Male Functional Status Question Answer Note LastModified by Organizat ion Details LastModified Time Are you able to care for yourself? Yes Information not available 10/11/2023 What is your exercise level? Occasional PT - stays active - walks with nice weather Information not available 08/14/2024 Mental Status None recorded. Family History Relationship Description Onset Age of this Age Resolved Age Notes LastModified by Organization Details LastModified Time Father Heart disease [email or web address] Not available 09/28 16:50:42 Mother Malignant tumor of colon [email or web address] Not available 09/28 16:50:50 Medical History Condition Response Coronary Artery Disease N Other N Atrial Fibrillation N High Blood Pressure N Depression N COPD N Blood Clots N Anxiety Disorder N Muscle, Joint, or Bone Problems N Acid Reflux (GERD) Y Cancer Y Stroke N Headaches N Kidney or Bladder Problems Y Have you had a mammogram in the last yea r? N Skin Problems Y Asthma N Allergies N Have you had a PSA blood test in the las t year? Y Hepatitis N High Cholesterol N Liver Disease N Thyroid Problems N GI Problems N Anemia Y Heart Attack (AR) N Diabetes N Seizures/Epilepsy N Have you had a colonoscopy in the last 1 0 years? Y Osteoporosis N Heart Failure N Immunizations Vaccine Type Date Status Note Provider Nam e and Address Organization Details Recorded Time influenza, unspecified formulation 4 completed Fiona Gaspar [place] null, [place] [facility] 07/10/2024 11:18:19 SARS-COV-2 (COVID-19) vaccine, UNSPECIFIED 4 completed Fiona Gas[place] [facility] 07/10/2024 11:18:56 Respiratory syncytial virus (RSV) vaccine, unspecified 4 completed F[place] [facility] 07/10/2024 11:19:15 pneumococcal, unspecified formulation 4 completed F[place] [facility] 07/10/2024 11:19:31 zoster recombinant 4 completed F[place] [facility] 07/10/2024 11:19:52 Influenza, split virus, quadrivalent, preservative 5 completed Yissel [place] [facility] 07/17/2024 15:00:28 Influenza, high-dose, quadrivalent, PF 2 completed [place]iss[place] [facility] 07/17/2024 15:00:28 Influenza, high-dose, quadrivalent, PF 1 completed [place]iss[place] [facility] 07/17/2024 15:00:28 Influenza, high-dose, quadrivalent, PF 0 completed [place]issel [place] [facility] 07/17/2024 15:00:28 Influenza, adjuvanted, quadrivalent, PF 3 completed Yissel Ebony, [place] [facility] 07/17/2024 15:00:28 COVID-19, mRNA, LNP-S, PF, 30 mcg/0.3 mL dose 1 completed Yissel Ebony, [place] [facility] 07/17/2024 15:00:28 COVID-19, mRNA, LNP-S, PF, 30 mcg/0.3 mL dose 1 completed Yissel Ebony, [place] [facility] 07/17/2024 15:00:28 COVID-19, mRNA, LNP-S, PF, 30 mcg/0.3 mL dose 1 completed Yissel Ebony, [place] [facility] 07/17/2024 15:00:28 COVID-19, mRNA, LNP-S, bivalent, PF, 30 mcg/0.3 mL dose 2 completed Yissel Ebony[place] [facility] 07/17/2024 15:00:28 COVID-19, mRNA, LNP-S, PF, miriam-sucrose, 30 mcg/0.3 mL 3 completed Yissel Ebony, [place] [facility] 07/17/2024 15:00:28 pneumococcal polysaccharide PPV23 9 completed Yissel Ebony[place] [facility] 07/17/2024 15:00:28 Tdap 3 completed Yissel Ebony[place] [facility] 07/17/2024 15:00:28 Pneumococcal conjugate PCV 13 7 completed Yissel [place] [facility] 07/17/2024 15:00:28 Influenza, high-dose, trivalent, PF 8 completed Yissel [place] [facility] 07/17/2024 15:00:28 Influenza, high-dose, trivalent, PF 7 completed Yissel [place] [facility] 07/17/2024 15:00:28 Influenza, high-dose, trivalent, PF 9 completed Yissel [place] [facility] 07/17/2024 15:00:28 Influenza, high-dose, trivalent, PF 6 completed [place]issel [place] [facility] 07/17/2024 15:00:28 Influenza, split virus, trivalent, preservative 3 completed Yissel [place]ony [place] [facility] 07/17/2024 15:00:28 Influenza, split virus, trivalent, PF 4 completed Yissel [place] [facility] 07/17/2024 15:00:28 zoster recombinant 4 completed C[place] [facility] 08/14/2024 11:41:55 Past Encounters Encounter ID Performer Location Encounter Start Date Encounter Closed Date Diagnosis/Indication Diagnosis SNOMED-CT Code Diagnosis ICD10 Code Diagnosis Note [id number] [facility] [address] [place] [address] 10/11/2023 16:08:23 10/11/2023 17:27:34 Gastroesophageal reflux disease without esophagitis 710242605 K21.9 Malignant neoplasm of urinary bladder 837970736 C67.9 Chronic anemia 312622109 D64.9 Hyperlipidemia 18481251 E78.5 [id number] Ernst Hunt MD [facility] (Adult [facility]) [address] [place] [address] 10/17/2023 14:38:55 10/17/2023 15:34:55 Dysuria 09319796 R30.0 [id number] MD [facility] (Adult Med) [address] [place] [address] 01/10/2024 14:51:29 01/10/2024 16:18:26 Hyperlipidemia 65807263 E78.5 Gastroesop hageal reflux disease without esophagitis 675781671 K21.9 Malignant neoplasm of urinary bladder 742345607 C67.9 [id number] MD [facility] (Adult Med) [address] [place] [address] 04/10/2024 14:44:20 04/10/2024 15:52:12 Hyperlipidemia 42203706 E78.5 Screening for malignant neoplasm of prostate 455593571 Z12.5 Gastroesop hageal reflux disease without esophagitis 860019417 K21.9 Chronic anemia 778080167 D64.9 [id number] Ernst Hunt MD [facility] [address] [place] [address] 07/08/2024 10:45:57 07/08/2024 13:10:22 Body mass index 20-24 - normal 937228033 Z68.22 Chest pain 95756535 R07. 9 Abdominal pain 01108634 R10.9 [id number] MD [facility] (Adult Med) [address] [place] [address] 07/17/2024 14:44:53 07/17/2024 15:40:14 Body mass index 20-24 - normal 684229760 Z68.23 Abdominal pain 91189990 R10.9 [id number] [facility] [address] [place] [phone] 08/14/2024 11:24:29 08/14/2024 12:09:10 Adult health examination 267319985 Z00.00 Health Risk Assessment collected and reviewed [id number] MD [facility] (Adult Med) [address] [place] [address] 08/23/2024 11:02:02 08/23/2024 12:48:20 Body mass index 20-24 - normal 780822106 Z68.23 Right flank pain 6280296 09 R10.9 Health Concerns Section Related Observation LastModified by Organization Detai ls LastModified Time None Recorded Concern Status LastModified by Organization Details LastModified Time None Recorded Advance Directives Directive Y: Payers Encounter Date Sequence Insurance Name Policy Number Policy Leigh Covered Member ID Leigh Member ID Guarantor Name 04/10/2024 1 [place] Wilbur Thomson [id number] 2 Femi Thomson 04/10/2024 2 [place] [id number] Femi Thomson [id number] Femi Thomson 07/08/2024 1 [place] C E Alix [id number] 2 Femi Alix 07/08/2024 2 [place] [id number] Femi E Alix [id number] Femi Alix 07/17/2024 1 [place] C E Alix [id number] 2 Femi Alix 07/17/2024 2 [place] [id number] Femi E Alix [id number] Femi Alix 08/14/2024 1 [place] C E Alix [id number] 2 Femi Alix 08/14/2024 2 [place] [id number] Femi E Alix [id number] Femi Alix 08/23/2024 1 [place] C E Alix [id number] 2 Femi Alix 08/23/2024 2 [place] [id number] Femi E Alix [id number] Femi Alix Notes Date Note Type Note Provider Name and Address Organization Details Recorded Time 04/10/2024 text/html chronic anemia asymptomatic GERD no nausea vomiting or heartburn hyperlipidemia is trying to follow a low-fat diet bladder cancer asymptomatic currently Ernst Hunt MD Attn: Account[address] [facility], [place], [address], [place] - [facility] 04/14/2024 16:40:10 07/08/2024 text/html ER visit for shaye e abdominal pain and nausea that showed some possible constipation symptoms are abdominal and sometimes radiate up through the epigastrium some constipation Ernst Hunt MD Attn: [address] [facility], [place], [address], [place] [facility] 08/09/2024 22:23:25 07/17/2024 text/html bowel movements more regular feeling better Ernst Hunt MD Attn: [address] [facility], [place], [address], [place] [facility] 08/11/2024 12:25:57 08/14/2024 text/html MAW 2Reported bypatient.Diet and Nutrition:healthy diet Fracture Risk:no sudden unexplained fractures;history of fractures Concentration and Memory:no decreased concentrating ability; no memory lapses or loss; does not forget words Speech/Motor difficulties:no speech difficulties; no difficulty expressing formulated concepts; no difficulty with fine manipulative tasks; no difficulty writing/copying; no slowed reaction time; does not knock things over when trying to pick them up Hearing:no loss of hearing Vision:worse both distance and near(trifocals); 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 Activities of Daily Living:able to bathe with limited or no assistance; able to contol urination and bowels; able to dress with limited or no assistance; able to feed self with limited or no assistance; able to get out of chair or bed with limited or no assistance; able to groom with limited or no assistance; able to toilet with limited or no assistance Instrumental Activities of Daily Living:able to do house work with limited or no assistance; able to grocery shop with limited or no assistance; able to manage medications with limited or no assistance; able to manage money with limited or no assistance; able to prepare meals with limited or no assistance; able to use the phone with limited or no assistance Falls Risk Assessment:no frequent falls while walking; no fall since last visit; no dizziness/vertigo; fall(s) in the past year 1 Home Safety:no unsafe jenny hazzards; no unsafe stairs; working smoke/CO detectors; practicing 'safer sex'; has hand bars in the bathroom/shower; good lighting in the home;fire arms Ernst Hunt MD Attn: [address] [place], [address], [facility] [place] 08/18/2024 15:47:23 08/23/2024 text/html several weeks of right flank dull pain nothing makes better or worse. He has had a CT scan in the last month did not show any kidney stones on the right kidney. Not passing any blood no fever no chills it was [id number] Ernst Hunt MD Attn: [address] [place], [address], [facility] 08/24/2024 16:55:10
--- OUTSIDE RECORDS SUMMARY | 2024-09-24 00:24 | XMS_ITS | Encounter Summary ---
Author Organization [facility] Address [address] [place] [address] Care Team Providers Care Expense Clerk Name Role Phone Hermann Kuhn MD Primary Care Provider [phone] Lam Hunt MD Primary Care Provider [phone] Encounter Details Date Type Department Care Team (Late st Contact Info) Description 03/09/2020 Lab Requisition [facility] DermPath Lab [address], [place] [id number] Jarrell Burrell MD [address] [address] Social History Tobacco Use Types Packs/Day Years Used Date Smoking Tobacco: Former Sex and Gender Information Value Date Recorded Sex Assigned at Not on file Gender Identity Not on file Sexual Orientation Not on file documented as of this encounter Plan of Treatment Not on file documented as of this encounter Procedures Procedure Name Priority Date/Time Associated Diagnosis Comments DERMATOPATHOLOGY Routine 03/05/2020 12:0 0 AM CDT documented in this encounter Results * DERMATOPATHOLOGY (03/05/2020 12:00 AM CDT) Case Report Dermatopathology Report Case: [id number] Authorizing Provider: Jarrell Burrell MD Collected: 03/05/2020 12:00 AM Ordering Location: [facility] DermPath Lab Received: 03/09/2020 06:08 AM Pathologist: Myles Cee MD Specimen: Skin, left nape 0 12:14 PM CDT DERMATOPATHOLOGY LABORATORY Final Diagnosis Specimen A. SKIN, left nape: BASAL CELL CARCINOMA (C44.41) NOT PRESENT AT MARGIN DERMAL SCAR (L90.5) 0 12:14 PM CDT DERMATOPATHOLOGY LABORATORY Clinical History Path# [id number]. Check margins 0 12:14 PM CDT DERMATOPATHOLOGY LABORATORY Gross Description Specimen A: Received is one formalin filled container labeled with the patient's name and designated left nape. The specimen consists of a non-oriented ellipse of skin measuring [id number] mm. The epidermal surface is unremarkable. The margin is inked green. The 12 o'clock and 6 o'clock tips are submitted in cassette 1. The remainder of the ellipse is serially sectioned and submitted in cassette 2-4. Jar 0. 0 12:14 PM CDT DERMATOPATHOLOGY LABORATORY Microscopic Description Specimen A. SKIN, left nape: Within the dermis there are aggregates of basaloid cells with a high nuclear to cytoplasmic ratio and peripheral palisading. This lesion is not present at the margin of the specimen. There are fibroblasts and collagen bundles oriented parallel to the skin surface with elongated blood vessels, some of which are oriented perpendicular to the skin surface. 0 12:14 PM CDT DERMATOPATHOLOGY LABORATORY Disclaimer An external and internal positive and negative controls are appropriate for the histochemical, immunohistochemical and immunofluorescence stain(s) in this case (if any), except where stated explicitly. The performance characteristics of the stain(s) cited in this report were developed and its performance characteristic determined by the Dermatopathology Laboratory at [facility], directed by Dr. Demetrio Cee. These tests need not be, and therefore are not, approved by the [place] Food and Drug Administration. The tests are used for clinical purposes. Billing Codes Specimen Charges Stain Charges 06506 1 0 12:14 PM CDT DERMATOPATHOLOGY LABORATORY Embedded Images 0 12:14 PM CDT DERMATOPATHOLOGY LABORATORY Pathology/Cytolog y TISSUE SPECIMEN FROM SKIN / Unknown 03/05/2020 03/09/2020 6:08 AM CDT Jarrell Burrell MD LAB - PATHOLOGY/CYTO LOGY ORDERABLES DERMATOPATHOLOGY LABORATORY [facility] - Department of Dermatology [facility]/[address] [phone] documented in this encounter Visit Diagnoses Not on filedocumented in this encounter Care Teams Expense Clerk Relationship Specialty Start Date End Date Hermann Kuhn MD [address] [place] [address] PCP - General 03/24/09 11/29/21 Lam Hunt MD [address] [place] [address] PCP - General 11/30/21 documented as of this encounter
--- OUTSIDE RECORDS SUMMARY | 2024-09-24 00:24 | XMS_ITS | Referral Summary ---
Author Organization [facility] Address [address] [place] [address] Care Team Providers Care Quality Compliance Manager Name Role Phone Lam Hunt MD Primary Care Provider [phone] Source Comments [facility],non-owned Affiliates and Associated Physician Practices is amultiple site organization consisting of ambulatory clinics and hospital sitesin [place], [place], [place] and [place]. This disclosure is being madepursuant to the Care Everywhere program and may not contain all information available regarding this patient. Last updated 18.[facility] [employer] Allergies No known active allergies Medications * [...] Mass Index - - Plan of Treatment Not on file Care Teams Quality Compliance Manager Relationship Specialty Start Date End Date Lam Hunt MD [facility] - General 11/30/21
[2024-09-24 12:52] VITALS: BP 129/77; PULSE 83; RESP 18; TEMP 36.8; O2SAT 98; BMI 21.7
[2024-09-24 13:02] VITALS: BP 103/62; PULSE 65; RESP 16; O2SAT 97
--- NOTE | 2024-09-24 13:03 | WPDANESEPPF ---
Anes - Initial Pre Proc Eval Procedure: Operation Date: 09/24/24 13:30 Proposed Procedures p Esophagogastroduodenoscopy & Colonoscopy - Suman Arenas MD Date/Time: 09/24/24 13:03 Surgeon: Suman Arenas MD Pre Op Diagnosis: GERD, Epigastric pain, Gastritis, Patient Data Age: 78 Gender: M Height: 1.83 m Weight: 72.8 kg Last Vital Signs Temp 36.8 C 09/24/24 12:52 Pulse 83 09/24/24 12:52 Resp 18 09/24/24 12:52 BP 129/77 09/24/24 12:52 Pulse Ox 98 09/24/24 12:52 O2 Del Method Room Air 09/24/24 12:52 Allergies Allergy/AdvReac Type Severity Reaction Status Date / Time ciprofloxacin AdvReac Mild Joint Pain Verified 09/24/24 12:49 doxycycline AdvReac Mild acid reflux Verified 09/24/24 12:49 Home Medications ?Medication ?Instructions ?Recorded ?Confirmed ?Type Bifidobacterium infantis 4 mg 4 mg PO DAILY 09/22/20 09/24/24 History capsule (Align (B.infantis)) finasteride 5 mg tablet 5 mg PO DAILY 09/22/20 09/24/24 History atorvastatin 10 mg tablet 10 mg PO QPM 11/16/21 09/24/24 History aspirin 81 mg tablet 81 mg PO DAILY 10/05/22 09/24/24 History sucralfate 1 gram tablet See Rx Instructions .Route 06/18/24 09/24/24 Rx .COMPLEX #270 tabs famotidine 20 mg tablet 20 mg PO QACDINNER reflux #90 tabs 07/19/24 09/24/24 Rx pantoprazole 40 mg tablet,delayed 40 mg PO BID #180 tabs 07/19/24 09/24/24 Rx release Patient hx anesthesia problems: none Family hx anesthesia problems: none Results Review: All pre-operative results and documents have been reviewed as part of the pre-operative evaluation. [facility] Past Medical History Medical History COPD (chronic obstructive pulmonary disease) GERD (gastroesophageal reflux disease) HLD (hyperlipidemia) HTN (hypertension) Social History Social History Smoking packs per day: 1 Smoking cigarettes per day: 20.0 Years smoked: 45 Smoking pack-years: 45.00 Smoking status: Former smoker Tobacco type: cigarettes Smoking end date: 02/01/04 Alcohol intake: current Alcohol use details: once a year Substance use: never Substance use type: does not use Living arrangements: alone Additional living arrangements comments: Gender identity (if verbalized by the patient): Male Sexual Orientation (if Verbalized by the Patient): Straight or Heterosexual Spiritual care concerns: No Anes - Eval Final PreProcedure Day of Procedure 09/24/24 13:03 Patient weight: normal Heart: regular rate and rhythm Lungs: clear to auscultation and normal air movement Airway: Mallampati scale class II Neurological: alert and oriented Last oral intake: >/= 8 hours ASA classification: III Emergent: no Anesthetic plan: proceed Anesthesia type and monitoring: general GIVS and standard monitoring Results Review: All pre-operative results and documents have been reviewed as part of the pre-operative evaluation. Informed Consent: The patient's anesthetic plan and its attendant risks and benefits were discussed with the patient/family/POA. Questions were solicited and answers provided to the satisfaction of the patient/family/POA.
[2024-09-24] MEDS: LACTATED RINGERS 1,000 ML 150 ML IV CONT (13:04)
--- NOTE | 2024-09-24 13:36 | PM.HPGS ---
History of Present Illness History of Present Illness Consent: Risks, benefits, and alternatives have been discussed and questions answered. Patient agrees to proceed with procedure. Chief complaint: GERD, Epigastric pain, Gastritis, Narrative: Femi Thomson is a 78 year old male with episode of abdominal pain weeks ago resolved since, had CT scan that showed possible gastric thickening, last EGD 2022 with hubbard's, colonoscopy 2020 Review of Systems Review of Systems: All systems reviewed & are unremarkable except as noted in HPI and below PMFSH Past Medical History Medical History COPD (chronic obstructive pulmonary disease) GERD (gastroesophageal reflux disease) HLD (hyperlipidemia) HTN (hypertension) Social History Social History Smoking packs per day: 1 Smoking cigarettes per day: 20.0 Years smoked: 45 Smoking pack-years: 45.00 Smoking status: Former smoker Tobacco type: cigarettes Smoking end date: 02/01/04 Alcohol intake: current Alcohol use details: once a year Substance use: never Substance use type: does not use Living arrangements: alone Additional living arrangements comments: Gender identity (if verbalized by the patient): Male Sexual Orientation (if Verbalized by the Patient): Straight or Heterosexual Spiritual care concerns: No Meds Home Medications and Allergies Home Medications ?Medication ?Instructions ?Recorded ?Confirmed ?Type Bifidobacterium infantis 4 mg 4 mg PO DAILY 09/22/20 09/24/24 History capsule (Align (B.infantis)) finasteride 5 mg tablet 5 mg PO DAILY 09/22/20 09/24/24 History atorvastatin 10 mg tablet 10 mg PO QPM 11/16/21 09/24/24 History aspirin 81 mg tablet 81 mg PO DAILY 10/05/22 09/24/24 History sucralfate 1 gram tablet See Rx Instructions .Route 06/18/24 09/24/24 Rx .COMPLEX #270 tabs famotidine 20 mg tablet 20 mg PO QACDINNER reflux #90 tabs 07/19/24 09/24/24 Rx pantoprazole 40 mg tablet,delayed 40 mg PO BID #180 tabs 07/19/24 09/24/24 Rx release Allergies Allergy/AdvReac Type Severity Reaction Status Date / Time ciprofloxacin AdvReac Mild Joint Pain Verified 09/24/24 12:49 doxycycline AdvReac Mild acid reflux Verified 09/24/24 12:49 Vital Signs Vital Signs - 24 hr 09/24/24 12:52 Temperature 98.2 F Pulse Rate 83 Respiratory Rate 18 Blood Pressure 129/77 Pulse Oximetry 98 Oxygen Delivery Room Air Exam Const: General: comfortable and no acute distress HENMT: Face/Nose/Sinus: Normal nares present Eyes: General: appearance normal, both eyes and all related structures Neck: Neck: no JVD Resp: Auscultation: clear to auscultation bilaterally Cardio: Rate: regular rate Rhythm: regular rhythm GI: Inspection: non-distended GI Palp: Yes Soft to palpation Skin: General skin exam: normal color Neuro: Speech: normal speech Extrem: General: normal to inspection Psych: Mental Status: mental status grossly normal Assessment and Plan Assessment and plan (1) Abnormal CT scan, gastrointestinal tract: Code(s): R93.3 - Abnormal findings on diagnostic imaging of other parts of digestive tract Status: Acute (2) Colon cancer screening: Code(s): Z12.11 - Encounter for screening for malignant neoplasm of colon Status: Acute Assessment and Plan: colonoscopy (3) Barretts esophagus: Code(s): K22.70 - Hubbard's esophagus without dysplasia Status: Acute Assessment and Plan: on ppi egd
[2024-09-24] MEDS: BENZOCAINE (*SP) 60 ML SPRAY CAN (HURRICAINE) 1 SPRAY MUCOUS MEM (13:43)
--- NOTE | 2024-09-24 13:51 | SUR.OPER ---
EGD: [id number] COLON:1351
[2024-09-24 14:12] VITALS: BP 104/68; PULSE 68; RESP 20; O2SAT 99
[2024-09-24 14:22] VITALS: BP 122/86; PULSE 70; RESP 16; O2SAT 98
== END 2024-09-24 14:51 | disposition home or self-care (01) ==
PROVIDERS: PCP Internal Medicine; Referring Provider Nurse Practitioner; Visit Provider Internal Medicine Gastroenterology
PROC: 0DJ08ZZ Inspection of Upper Intestinal Tract, Via Natural or Artificial Opening Endoscopic (ICD-10-PCS; CPT 45378; principal; 2024-09-24 13:30)
DX: Z12.11 Encounter for screening for malignant neoplasm of colon (principal); D12.0 Benign neoplasm of cecum; D12.3 Benign neoplasm of transverse colon; K64.8 Other hemorrhoids; K22.70 Barrett's esophagus without dysplasia; K21.9 Gastro-esophageal reflux disease without esophagitis; E78.5 Hyperlipidemia, unspecified; I10 Essential (primary) hypertension; J44.9 Chronic obstructive pulmonary disease, unspecified; Z79.82 Long term (current) use of aspirin; Z87.891 Personal history of nicotine dependence
CPT/HCPCS: 43239; 45385; 88305; J2003; J2704; J7120

== ENCOUNTER 2025-06-20 18:47 | Emergency (ER) | payer MEDICARE, SELFPAY ==
[2025-06-20] VITALS (9 sets, daily range): BP systolic 138–149; BP diastolic 76–89; PULSE 64–74; RESP 12–18; TEMP 36.7; O2SAT 95–99
--- NOTE | ~2025-06-20 | CT_ITS ---
EXAMINATION: CT abdomen pelvis w con DATE: 06/20/2025 20:48 INDICATION: Right lower quadrant pain for 2 weeks. TECHNIQUE: Computed tomography (CT) of the abdomen and pelvis was performed 100 cc Omnipaque 350 intravenous contrast. Automated exposure control and iterative reconstruction technique were employed. The dose-length product was 482.62 mGy-cm. COMPARISON: CT abdomen and pelvis dated 01/16/2023. FINDINGS: Lung bases do not show acute findings. Emphysematous changes with bullae in both lungs. No focal lesions of liver and spleen. Significant thickening of the wall of the body of the stomach similar to the prior CT of 01/16/2023. Gallbladder is absent. Pancreas and kidneys do not show acute findings. No evidence of small bowel obstruction. Moderate fecal impaction of proximal colon. The appendix is not distinctly visible. No inflammatory changes in the pelvis. Focal bladder wall thickening with focal calcification of the right lateral wall of the urinary bladder is noted the calcified lesion measuring 9 mm in diameter. No pelvic adenopathy. IMPRESSION: 1. No acute findings in the upper abdomen and pelvis. Appendix is not distinctly visible. Postoperative changes of cholecystectomy. 2. Thickening of the wall of the body of the stomach similar to prior CT examination in 2022. Likely changes of gastritis. 3. 9 mm size calcified nodule of the right lateral wall of the urinary bladder. Possible calcified tumor of the urinary bladder. Correlation with cystoscopy is recommended. Reviewed, dictated and finalized at location [facility]. [employer] IMPRESSION: 1. No acute findings in the upper abdomen and pelvis. Appendix is not distinctl y visible. Postoperative changes of cholecystectomy. 2. Thickening of the wall of the body of the stomach similar to prior CT examin ation in 2022. Likely changes of gastritis. 3. 9 mm size calcified nodule of the right lateral wall of the urinary bladder. Possible calcified tumor of the urinary bladder. Correlation with cystoscopy i s recommended.
--- NOTE | 2025-06-20 19:19 | ED.ABDPAIN ---
HPI - Abdominal Pain General Chief Complaint: Abdominal Pain Stated Complaint: right abdominal pain x 2 weeks Time Seen by Provider: 06/20/25 19:01 History of Present Illness HPI narrative: 79-year-old male with history of Barretts esophagus secondary to longstanding GERD presenting to the emergency department with 2 weeks of right lower quadrant intermittent abdominal discomfort. Patient states he was also feeling constipated and took a bowel regimen as directed by his doctor had numerous mushy bowel movements afterwards and felt relief of his constipation but still having pain in his right lower quadrant. Has an appendix but does not have a gallbladder anymore. No fever, chills, traumatic injuries. Was otherwise in his normal state of health. No fever, chills, chest pain shortness a breath. Has not taken anything for pain control. Related Data Home Medications ?Medication ?Instructions ?Recorded ?Confirmed ?Last Taken ?Type Bifidobacterium infantis 4 mg 4 mg PO DAILY 09/22/20 10/08/24 09/23/24 History capsule (Align (B.infantis)) finasteride 5 mg tablet 5 mg PO DAILY 09/22/20 10/08/24 09/23/24 History atorvastatin 10 mg tablet 10 mg PO QPM 11/16/21 10/08/24 09/23/24 History aspirin 81 mg tablet 81 mg PO DAILY 10/05/22 10/08/24 09/23/24 History Allergies Allergy/AdvReac Type Severity Reaction Status Date / Time ciprofloxacin AdvReac Mild Joint Pain Verified 09/24/24 12:49 doxycycline AdvReac Mild acid reflux Verified 09/24/24 12:49 Review of Systems Review of Systems: As reviewed above in HPI [facility] Past Medical History Medical History COPD (chronic obstructive pulmonary disease) GERD (gastroesophageal reflux disease) HLD (hyperlipidemia) HTN (hypertension) Social History Social History Smoking packs per day: 1 Smoking cigarettes per day: 20.0 Years smoked: 45 Smoking pack-years: 45.00 Smoking status: Former smoker Tobacco type: cigarettes Smoking end date: 02/01/04 Alcohol intake: current Alcohol use details: once a year Substance use: never Substance use type: does not use Living arrangements: alone Additional living arrangements comments: Gender identity (if verbalized by the patient): Male Sexual Orientation (if Verbalized by the Patient): Straight or Heterosexual Spiritual care concerns: No Exam Narrative: GENERAL: [Well-appearing, well-nourished, and in no acute distress.] HEAD: [Normocephalic, atraumatic.] EYES: [PERRLA and EOMI.] ENT: Nares clear, no rhinorrhea or epistaxis. Mucous membranes moist. NECK: Supple. CHEST: [Clear to auscultation. No respiratory distress.] HEART: [Regular rate and rhythm]. No murmur heard. [Normal peripheral pulses.] ABDOMEN: Soft and nondistended but is tender to palpation the right lower quadrant minimally. No peritonitis signs. No Rovsing's, psoas, obturator signs. EXTREMITIES: Normal range of motion. [No edema.] SKIN: Warm, dry, no rash. NEURO: [No focal deficits]. Alert and oriented [x3.] PSYCH: [Normal mood and affect.] Course Vital Signs Vital signs: Vital Signs Temperature 36.7 C 06/20/25 18:51 Pulse Rate 74 06/20/25 18:51 Blood Pressure 141/76 H 06/20/25 18:51 Pulse Oximetry 95 06/20/25 18:51 Temperature 36.7 C 06/20/25 18:58 Pulse Rate 65 06/20/25 22:29 Respiratory Rate 16 06/20/25 22:29 Blood Pressure 138/85 06/20/25 22:29 Pulse Oximetry 96 06/20/25 22:29 Oxygen Delivery Room Air 06/20/25 18:58 MDM - Abdominal Pain MDM Narrative Medical decision making narrative: 79-year-old male with history of Barretts esophagus secondary to longstanding GERD presenting to the emergency department with 2 weeks of right lower quadrant intermittent abdominal discomfort. Patient states he was also feeling constipated and took a bowel regimen as directed by his doctor had numerous mushy bowel movements afterwards and felt relief of his constipation but still having pain in his right lower quadrant. Has an appendix but does not have a gallbladder anymore. No fever, chills, traumatic injuries. Was otherwise in his normal state of health. No fever, chills, chest pain shortness a breath. Has not taken anything for pain control. Patient is hemodynamically stable but does have some minimal tenderness in the right lower quadrant ongoing for 2 weeks. Given his age could potentially be intra-abdominal infection, volvulus, appendicitis, bowel obstruction given he had some constipation but that resolved with a bowel regimen. Patient given Zofran and fluids as he was feeling nauseous and vomited 1 time brain last [address] of the abdomen pelvis with IV contrast obtained as well as blood work. Patient re-evaluated after interventions. patient's labs are unremarkable. No leukocytosis or significant anemia. Urine without any blood or bacteria but sent for culture given the white blood cells. Normal platelet count. Normal electrolytes and kidney function. Normal LFTs. Patient CT scan shows no acute findings, no distinct appendix visualized but no evidence of infection there. Thickening gastric body compared to prior similar to gastritis. Moderate fecal impaction the proximal colon. 9 mm calcified nodule likely calcified tumor in the urinary bladder with recommendations to correlate with cystoscopy. I discussed the case with the on-call urologist Dr. Vick and he did recommend outpatient evaluation with cystoscopy. I relayed this to the patient and informed about the findings and they actually told me he has a history of bladder cancer and that this calcified nodules already got evaluated last week with a cystoscopy and was found just be a scar from the previous surgery. Patient already has Urology follow-up for this and does not need any additional care for this at this time. He does have fecal impaction in the area of the proximal colon which could be causing his symptoms. Patient encouraged to up his MiraLax regimen at home and start magnesium citrate as well for continued bowel regimen health and instructed on return precautions and follow-up instructions with his PCP or ER if worsening. Patient is safe for discharge home at this time. Medical Records Attestation: I reviewed the patient's medical records. Lab Data Attestation: I reviewed the patient's lab results. 06/20/25 20:01 06/20/25 20:01 Labs: Lab Results 06/20/25 06/20/25 Range/Units 19:36 20:01 WBC 6.5 (4.5-10.0) K/mm3 RBC 3.98 L (4.6-6.20) M/mm3 Hgb 13.0 L (14.0-18.0) g/dL Hct 37.5 L (42.0-52.0) % MCV 94.2 (80-100) fl MCH 32.7 (26-34) pg MCHC 34.7 (32-36) g/dl RDW 12.7 (11.5-14.5) % Plt Count 200 (150-375) k/mm3 MPV 9.2 (7.4-10.4) fl Immature Gran % (Auto) 0.2 (0-0.5) % Neut % (Auto) 64.4 (45.5-73.1) % Lymph % (Auto) 19.6 (18.3-44.2) % [place] % (Auto) 11.0 H (2.6-8.5) % Eos % (Auto) 3.4 (0-4.4) % Baso % (Auto) 1.4 H (0.2-1.2) % Lymph # (Auto) 1.28 (0.9-3.2) K/mm3 [place] # (Auto) 0.7 H (0.1-0.6) K/mm3 Eos # (Auto) 0.2 (0-0.3) K/mm3 Baso # (Auto) 0.1 (0.0-0.1) K/mm3 Abs Immat Gran (auto) 0.01 (0.00-0.031) K/mm3 Absolute Neuts (auto) 4.2 (1.3-6.7) K/mm3 Absolute Nucleated RBC 0.000 (0.0-0.012) K/mm3 Nucleated RBC % 0.0 (0.0-0.2) % Sodium 136 L (137-145) mmol/L Potassium 4.2 (3.4-5.0) mmol/L Chloride 103 (98-107) mmol/L Carbon Dioxide 28 (22-30) mmol/L Anion Gap 5 (4-12) mmol/L BUN 14 (9-20) mg/dL Creatinine 0.86 (0.7-1.3) mg/dL Estim Creat Clear Calc 65 ml/min Estimated GFR > 60 (59 - ) Glucose 104 (65-110) mg/dL Calcium 8.6 (8.4-10.2) mg/dL Total Bilirubin 0.4 (0.2-1.3) mg/dL AST 33 (17-59) U/L ALT 21 (6-50) U/L Alkaline Phosphatase 70 (38-126) U/L Total Protein 6.8 (6.3-8.2) g/dL Albumin 4.0 (3.5-5.1) g/dL Lipase 70 (23-300) U/L Urine Color Dark yellow (Yellow) Urine Appearance Clear (Clear) Urine pH 6.0 (5.0-9.0) Ur Specific [place] 1.015 (1.001-1.035) Urine Protein Negative (Negative) mg/dL Urine Glucose (UA) Negative (Negative) mg/dL Urine Ketones Negative (Negative) mg/dL Ur Blood (Man) Negative (Negative) Urine Nitrate Negative (Negative) Urine Bilirubin Negative (Negative) Urine Urobilinogen 0.2 (<2.0) mg/dL Leukocyte Esterase Rfl 2+ H (Negative) AMY/UL Urine RBC 0-2 (0-2) /hpf Urine WBC 21-50 H (0-3) /hpf Ur Squamous Epith Cells None seen (Few) /hpf Urine Bacteria None seen /hpf Urine Casts 0-2 Imaging Data Attestation: I personally reviewed and interpreted this imaging study as follows: My impression: Impressions Abdomen/Pelvis CT 06/20/25 20:54 IMPRESSION: 1. No acute findings in the upper abdomen and pelvis. Appendix is not distinctly visible. Postoperative changes of cholecystectomy. 2. Thickening of the wall of the body of the stomach similar to prior CT examination in 2022. Likely changes of gastritis. 3. 9 mm size calcified nodule of the right lateral wall of the urinary bladder. Possible calcified tumor of the urinary bladder. Correlation with cystoscopy is recommended. Radiologist's impression: ITS Impressions Abdomen/Pelvis CT 06/20/25 20:54 IMPRESSION: 1. No acute findings in the upper abdomen and pelvis. Appendix is not distinctly visible. Postoperative changes of cholecystectomy. 2. Thickening of the wall of the body of the stomach similar to prior CT examination in 2022. Likely changes of gastritis. 3. 9 mm size calcified nodule of the right lateral wall of the urinary bladder. Possible calcified tumor of the urinary bladder. Correlation with cystoscopy is recommended. Discharge Plan Discharge Clinical Impression: Right lower quadrant abdominal pain, Constipation, History of bladder cancer Patient Disposition: Home Condition: Stable Instructions: Antibiotic Form, Polyethylene Glycol 3350 (By mouth), Magnesium Citrate (By mouth), Constipation (DC) Additional Instructions: take the prescribed magnesium citrate and MiraLax as directed for the next few days for continued bowel regimen health. Maintain good oral hydration with water and electrolyte solution such as Gatorade / Powerade. Maintain good oral intake of food and fiber. CT scan shows no active infection. Bladder wall calcified nodule that you are already aware about. Follow-up with urologist as needed outpatient. Follow-up with your primary care provider if not improving outpatient with this therapy and return with any worsening symptoms or emergent concerns. Patient Language: Polish Prescriptions: New polyethylene glycol 3350 [Miralax] 17 gram/dose powder 17 g PO BID Qty: 238 0RF magnesium citrate Solution 150 ml PO BID PRN (Reason: constipation) Qty: 296 2RF No Action finasteride 5 mg tablet 5 mg PO DAILY Align (B.infantis) 4 mg capsule 4 mg PO DAILY pantoprazole 40 mg tablet,delayed release (DR/EC) 40 mg PO DAILY Qty: 30 11RF atorvastatin 10 mg tablet 10 mg PO QPM aspirin 81 mg Tablet 81 mg PO DAILY famotidine 20 mg tablet See Rx Instructions .ROUTE .COMPLEX Qty: 90 3RF Dose Instruction: TAKE 1 TABLET BY MOUTH EVERY DAY BEFORE DINNER FOR REFLUX Rx Instructions: TAKE 1 TABLET BY MOUTH EVERY DAY BEFORE DINNER FOR REFLUX Follow-up/Referrals: Gilbert,MD Lam [Primary Care Provider]
[2025-06-20 19:45] LABS: Add Urine Microscopic? YES; Appearance Urine Clear (Clear); Glucose Urine UA Negative (Negative); Leukocyte Esterase Ur 2+ LEU/UL (Negative); Nitrate Urine Negative (Negative); Non Pathogenic Casts 0-2; Specific Grav Ur 1.015 (1.001-1.035)
[2025-06-20 20:07] LABS: Hematocrit 37.5 % (42.0-52.0); Hemoglobin 13.0 g/dL (14.0-18.0); Immature Granulocyte Percent A 0.2 % (0-0.5); Lymphocytes Absolute Auto 1.28 K/mm3 (0.9-3.2); Mean Corpuscular HGB Conc 34.7 g/dl (32-36); Mean Corpuscular Hemoglobin 32.7 pg (26-34); Mean Corpuscular Volume 94.2 fl (80-100); Nucleated Red Blood Cells Absolute Auto 0.000 K/mm3 (0.0-0.012); Nucleated Red Blood Cells Perc 0.0 % (0.0-0.2); Platelet Count Result 200 k/mm3 (150-375); Red Blood Count 3.98 M/mm3 (4.6-6.20); White Blood Count 6.5 K/mm3 (4.5-10.0)
[2025-06-20] MEDS: LACTATED RINGERS 1,000 ML 999 ML IV CONT (20:18)
[2025-06-20] MEDS: ONDANSETRON INJ 4 MG/2 ML VIAL IV PUSH (20:20)
[2025-06-20 20:23] LABS: Alanine Aminotransferase 21 U/L (6-50); Albumin Level 4.0 g/dL (3.5-5.1); Alkaline Phosphatase 70 U/L (38-126); Anion Gap 5 mmol/L (4-12); Aspartate Amino Transferase 33 U/L (17-59); Bilirubin,Total 0.4 mg/dL (0.2-1.3); Blood Urea Nitrogen 14 mg/dL (9-20); Calcium 8.6 mg/dL (8.4-10.2); Carbon Dioxide 28 mmol/L (22-30); Chloride 103 mmol/L (98-107); Estimated CRCL calculation 65 ml/min; Estimated Glomerular Filt Rate > 60; Glucose 104 mg/dL (65-110); Lipase 70 U/L (23-300); Potassium 4.2 mmol/L (3.4-5.0); Sodium 136 mmol/L (137-145); Total Protein 6.8 g/dL (6.3-8.2)
[2025-06-20] MEDS: MORPHINE SULFATE (*CRX) 4 MG/ML INJ 2 MG IV PUSH (20:26)
--- NOTE | 2025-06-20 22:20 | PC.NURSE ---
Per , okay for pt to leave prior to finishing LR
== END 2025-06-20 22:31 | disposition home or self-care (01) ==
PROVIDERS: Emergency Provider Student in an Organized Health Care Education/Training Program; PCP Internal Medicine
DX: K59.00 Constipation, unspecified (principal); J44.9 Chronic obstructive pulmonary disease, unspecified; E78.5 Hyperlipidemia, unspecified; I10 Essential (primary) hypertension; Z87.891 Personal history of nicotine dependence; Z85.51 Personal history of malignant neoplasm of bladder
CPT/HCPCS: 36415; 74177; 80053; 81001; 83690; 85025; 87086; 87186; 96361; 96374; 96375; 99284; J2270; J2405; J7120; Q9967